=== PATIENT | female | born 1975 | race Caucasian/White ===

== ENCOUNTER 2022-01-22 08:11 | Outpatient (CLI) | payer OTHER, SELFPAY ==
--- NOTE | ~2022-01-22 | US_ITS ---
EXAMINATION: US pelvic complete w TV DATE: 01/22/2022 10:18 INDICATION: Pelvic and suprapubic pain. Postmenopausal. Comparison:No prior studies for comparison. TECHNIQUE: Multiple transabdominal and endovaginal sonographic images of the pelvis performed. FINDINGS: The uterus measures 5.3 x 4.2 x 2.7 cm. There is a small uterine fibroid measuring 8 x 6 x 4 mm. The endometrial complex measures 2.4 mm. The ovaries are not visualized, likely atrophic. There is no free fluid in the pelvis. There are no abnormal masses seen on either side. IMPRESSION: 1. Unremarkable pelvic ultrasound. Reviewed, dictated and finalized at location A.
--- NOTE | ~2022-01-22 | MMUS_ITS ---
EXAMINATION: MM diagnostic alex BI w lit, US breast BI limited HISTORY: Left breast pain TECHNIQUE: Craniocaudal, mediolateral, and mediolateral oblique 3-D tomosynthesis images of the porfirio ts were performed and synthetic 2-D images were generated. CAD analysis was submitted and interpreted . High resolution limited left breast ultrasound was performed. COMPARISON: No prior mammogram is currently available comparison. BREAST PARENCHYMAL COMPOSITION: There are scattered areas of fibroglandular density. FINDINGS: MAMMOGRAPHIC FINDINGS: No suspicious mass, calcification, or architectural distortion are identified. There is focal asymmet ry in the middle third of the upper outer quadrant left breast. ULTRASOUND: Multiple similar appearing masses are seen in the upper outer quadrants of both breasts, consistent w ith benign findings. No suspicious cystic or solid mass is identified. No definite sonographic correl ate is identified for the patient's reported breast pain. IMPRESSION: 1. No specific mammographic or sonographic correlate is identified for the patient's reported left br east pain. Further evaluation at this time should be based on clinical assessment. Continued follow-u p physical examination is recommended. 2. Recommend routine screening mammography in one year. BI-RADS Category 2: Benign finding(s). Reviewed, dictated and finalized at location A. IMPRESSION: 1. No specific mammographic or sonographic correlate is identified for the gauri ent's reported left breast pain. Further evaluation at this time should be base d on clinical assessment. Continued follow-up physical examination is recommend ed. 2. Recommend routine screening mammography in one year. BI-RADS Category 2: Benign finding(s).
== END 2022-01-22 08:12 | disposition home or self-care (01) ==
LOC: CHSIMG 08:13
PROVIDERS: PCP Nurse Practitioner Family; Visit Provider Nurse Practitioner Family
DX: R10.30 Lower abdominal pain, unspecified (principal); N64.4 Mastodynia
CPT/HCPCS: 76642; 76830; 76856; 77062; 77066; G0279

== ENCOUNTER 2022-03-30 13:53 | Outpatient (CLI) | payer OTHER, SELFPAY ==
[2022-03-30 14:04] LABS: Basophils Absolute Auto 0.07 K/mm3 (0.00-0.10); Basophils Percent Auto 0.6 % (0.0-1.0); Eosinophils Absolute Auto 0.27 K/mm3 (0.02-0.50); Eosinophils Percent Auto 2.4 % (1.0-6.0); Hematocrit 45.9 % (35.0-49.0); Hemoglobin 14.7 g/dL (12.0-15.0); Immature Granulocyte Absolute 0.03 K/mm3 (0.00-0.00); Immature Granulocyte Percent A 0.3 % (0.0-0.0); Mean Corpuscular Hemoglobin 28.9 pg (27.0-31.0); Mean Corpuscular Volume 90.2 fL (78.0-102.0); Monocytes Absolute Auto 1.01 K/mm3 (0.10-0.90); Monocytes Percent Auto 8.9 % (2.0-11.0); Neutrophils Absolute Auto 5.9 K/mm3 (1.7-7.2); Neutrophils Percent Auto 51.8 % (50.0-70.0); Platelet Count Result 273 K/mm3 (150-420); Red Blood Count 5.09 M/mm3 (4.20-5.40); Red Cell Distribution Width 13.2 % (11.6-14.4); White Blood Count 11.4 K/mm3 (4.8-10.8)
[2022-03-30 14:08] LABS: Add Urine Microscopic? NO; Appearance Urine Clear (Clear); Bilirubin Urine Negative (Negative); Blood Urine Negative (Negative); Color Urine Light Yellow (Yellow); Glucose Urine UA Negative (Negative); Ketones Urine Negative (Negative); Leukocyte Esterase Ur Negative LEU/UL (Negative); Nitrate Urine Negative (Negative); Protein Urine Negative (Negative); Urobilinogen Urine 0.2 mg/dL (0.2-1.0)
--- NOTE | 2022-03-30 14:26 | ECG_ITS ---
Measurements Intervals [place] Rate: 94 P: 75 NC: 131 QRS: 19 QRSD: 79 T: 54 QT: 360 QTc: 451 Interpretive Statements SINUS RHYTHM LOW QRS VOLTAGE IN PRECORDIAL LEADS BORDERLINE ST-T WAVE ABNORMALITY- DIFFUSE LEADS BASELINE ARTIFACT- II, III, AVR, AVF BORDERLINE ECG NO PREVIOUS ECG AVAILABLE FOR COMPARISON Electronically Signed On 03-30-2022 16:59:13 CDT by José Miguel Howell D.O.
[2022-03-30 15:02] LABS: Alanine Aminotransferase 70 U/L (14-59); Albumin Level 4.3 g/dL (3.4-5.0); Alkaline Phosphatase 91 U/L (46-116); Anion Gap 7 mmol/L (8-16); Aspartate Amino Transferase 47 U/L (15-37); Bilirubin,Total 0.3 mg/dL (0.00-1.00); Blood Urea Nitrogen 13 mg/dL (7-18); Calcium 9.6 mg/dL (8.5-10.1); Carbon Dioxide 31 mmol/L (21-32); Chloride 98 mmol/L (98-108); Estimated Glomerular Filt Rate > 60; Free T4 Free Thyroxine 0.92 ng/dL (0.76-1.46); Glucose 88 mg/dL (70-99); Iron 63 ug/dL (50-170); Magnesium 1.9 mg/dL (1.8-2.4); Osmolality Calculated 281 mOsm/kg (285-295); Potassium 3.9 mmol/L (3.5-5.1); Sodium 136 mmol/L (136-145); Thyroid Stimulating Hormone 3.95 uIU/mL (0.36-3.74); Total Protein 7.8 g/dL (6.4-8.2); Vitamin B12 467 pg/mL (193-986)
[2022-04-01 17:17] LABS: Vitamin D 25 Hydroxy 15 ng/mL (30-100)
== END 2022-03-30 13:54 | disposition home or self-care (01) ==
LOC: CHSLAB 13:56
PROVIDERS: PCP Nurse Practitioner Family; Visit Provider Nurse Practitioner Family
DX: R53.83 Other fatigue (principal); I10 Essential (primary) hypertension; Z79.899 Other long term (current) drug therapy
CPT/HCPCS: 36415; 80053; 81003; 82306; 82607; 83540; 83735; 84439; 84443; 85025; 93005

== ENCOUNTER 2022-07-14 16:15 | Emergency (ER) | payer OTHER, SELFPAY ==
--- NOTE | ~2022-07-14 | CT_ITS ---
EXAMINATION: CT abdomen pelvis w con DATE: 07/14/2022 18:03 INDICATION: RUQ Umbilical abdominal pain TECHNIQUE: Computed tomography (CT) of the abdomen and pelvis was performed with 100 mL Omnipaque-350 intravenous contrast. Automated exposure control and iterative reconstruction technique were employe d. The dose-length product was 1439.55 mGy-cm. COMPARISON: None. FINDINGS: Lower thorax: Unremarkable. Incompletely visualized right middle lobe opacity, likely representing sc ar/atelectasis Liver: Enlarged. Diffusely fatty infiltrated. Biliary/Gallbladder: Gallbladder is normal. No bile duct dilation. Pancreas: Fatty infiltrated. Spleen: Normal. Adrenals:No mass. Kidneys: No mass, stone, or hydronephrosis. Mild bilateral perinephric stranding. GI tract: No small or large bowel dilation. Normal appendix. Mesentery/Peritoneum: No ascites, mass, or free air. Retroperitoneum: No mass. Pelvis: Partially distended urinary bladder with wall thickening, remaining pelvic organs are within normal limits. Soft Tissues: Soft tissues and body wall unremarkable. Bones: No acute osseous finding. IMPRESSION: Hepatomegaly and steatosis. Bladder wall thickening, which may be secondary to incomplete distention or cystitis. Reviewed, dictated and finalized at location K. A MILLING MACHINE OPERATOR
[2022-07-14 16:15] VITALS: BP 156/97; PULSE 100; RESP 16; TEMP 36.3; O2SAT 100
--- NOTE | 2022-07-14 16:27 | ED.ABDPAIN ---
HPI - Abdominal Pain General Chief Complaint: Abdominal Pain Stated Complaint: pain in belly button around to her back Time Seen by Provider: 07/14/22 16:26 Source: patient and RN notes reviewed Mode of arrival: ambulatory Limitations: no limitations History of Present Illness HPI narrative: Patient is sent over from the primary care clinic where she was there for abdominal pain. Nurse practitioner states that the patient has been having abdominal pain for 2 days and feels like something is pulling from her umbilicus down. She does have a history of a umbilical hernia that had mesh placement several years ago. She had a UA done that apparently was negative. Nurse practitioner felt that she needed to have some blood work and CT scan done. Patient has had problems with nausea, no diarrhea or constipation, no fever no chills. MD elicited complaint: abdominal pain Pertinent past history: none Onset (ago): day(s) (2) Pain Consistency: constant Location: periumbilical Severity: severe Quality: stabbing, sharp and burning Radiation: back Migration to: no migration Related Data Allergies Allergy/AdvReac Type Severity Reaction Status Date / Time egg Allergy Severe stomach Verified 07/14/22 16:26 pain, cant breathe, vomiting. peanut Allergy Severe stomach Verified 07/14/22 16:26 pains PMFSH Past Medical History Medical History Hepatic steatosis Left tibial fracture Periumbilical hernia Surgical History Surgical History H/O hernia repair H/O left knee surgery H/O oral surgery H/O right knee surgery ligament tears History of tonsillectomy Social History Social History (Updated 07/14/22 @ 15:23 by Rosey Penny MA) Smoking packs per day: 0.25 Smoking cigarettes per day: 5.0 Years smoked: 30 Smoking pack-years: 7.50 Smoking status: Current every day smoker Alcohol intake: current Alcohol use details: social Substance use: never Substance use type: does not use Lack of Transportation: No Lack of Food: Never True Current Housing: I Have Housing Concerned About Future Housing: No Difficulty Paying Gas/Electric Bills: No Difficulty Paying for Meds: No Currently Unemployed: No Education: Grade School Difficulty w/ Childcare or Family Care: No Course Vital Signs Vital signs: Vital Signs Temperature 36.3 C L 07/14/22 16:15 Pulse Rate 100 07/14/22 16:15 Respiratory Rate 16 07/14/22 16:15 Blood Pressure 156/97 H 07/14/22 16:15 Pulse Oximetry 100 07/14/22 16:15 Oxygen Delivery Room Air 07/14/22 16:15 Temperature 36.3 C L 07/14/22 16:15 Pulse Rate 86 07/14/22 18:16 Respiratory Rate 14 07/14/22 18:16 Blood Pressure 103/62 07/14/22 18:16 Pulse Oximetry 98 07/14/22 18:16 Oxygen Delivery Room Air 07/14/22 18:16 MDM - Abdominal Pain MDM Narrative Medical decision making narrative: I considered abdominal pain, bowel obstruction, bowel perforation, urinary tract infection, adhesions from previous surgery, diverticulitis, gastroenteritis, acute appendicitis. On CT patient found to have thickening of the bladder wall and mild perinephric stranding. She may be having a urinary tract infection even know her urine was normal at the clinic. I am going to treat her for a UTI as her follow-up with her surgeon for possible adhesion which would not be seen on CT scan. Lab Data Attestation: I reviewed the patient's lab results. 07/14/22 17:03 07/14/22 17:03 Labs: Lab Results 07/14/22 07/14/22 07/14/22 Range/Units 17:03 17:03 17:03 WBC 10.6 (4.8-10.8) K/mm3 RBC 4.92 (4.20-5.40) M/mm3 Hgb 14.5 (12.0-15.0) g/dL Hct 44.3 (35.0-49.0) % MCV 90.0 (78.0-102.0) fL MCH 29.5 (27.0-31.0) pg MCHC 32.7 (32.0-36.0) g/dL RDW 12.9 (11.6-14.4) % Plt Count 229
[2022-07-14] MEDS: ONDANSETRON INJ 4 MG/2 ML VIAL IV PUSH (16:45)
[2022-07-14] MEDS: HYDROmorphone HCL INJ (*CRX) 2 MG/ML VIAL 1 MG IV PUSH (16:57)
--- NOTE | 2022-07-14 17:02 | PC.NURSE ---
POST ERP EXAM, PT REPORTS EMESIS DUE TO PAIN. MEDICATION WAS ADMINISTERED, PT REPORTS NAUSEA IS MUCH BETTER, PAIN IS GETTING BETTER. WILL CONTINUE TO MONITOR.
[2022-07-14 17:07] LABS: Basophils Absolute Auto 0.05 K/mm3 (0.00-0.10); Basophils Percent Auto 0.5 % (0.0-1.0); Eosinophils Absolute Auto 0.22 K/mm3 (0.02-0.50); Eosinophils Percent Auto 2.1 % (1.0-6.0); Hematocrit 44.3 % (35.0-49.0); Hemoglobin 14.5 g/dL (12.0-15.0); Immature Granulocyte Absolute 0.03 K/mm3 (0.00-0.00); Immature Granulocyte Percent A 0.3 % (0.0-0.0); Lymphocytes Absolute Auto 4.68 K/mm3 (1.10-4.50); Lymphocytes Percent Auto 44.3 % (18.0-42.0); Mean Corpuscular HGB Conc 32.7 g/dL (32.0-36.0); Mean Corpuscular Hemoglobin 29.5 pg (27.0-31.0); Mean Platelet Volume 11.4 fl (9.2-11.8); Monocytes Absolute Auto 0.76 K/mm3 (0.10-0.90); Monocytes Percent Auto 7.2 % (2.0-11.0); Neutrophils Absolute Auto 4.8 K/mm3 (1.7-7.2); Neutrophils Percent Auto 45.6 % (50.0-70.0); Platelet Count Result 229 K/mm3 (150-420); Red Blood Count 4.92 M/mm3 (4.20-5.40); Red Cell Distribution Width 12.9 % (11.6-14.4); White Blood Count 10.6 K/mm3 (4.8-10.8)
[2022-07-14 17:25] LABS: Alanine Aminotransferase 52 U/L (14-59); Albumin Level 3.9 g/dL (3.4-5.0); Alkaline Phosphatase 82 U/L (46-116); Anion Gap 7 mmol/L (8-16); Aspartate Amino Transferase 35 U/L (15-37); Bilirubin,Total 0.3 mg/dL (0.00-1.00); Blood Urea Nitrogen 11 mg/dL (7-18); Calcium 9.2 mg/dL (8.5-10.1); Carbon Dioxide 30 mmol/L (21-32); Chloride 99 mmol/L (98-108); Estimated CRCL calculation 84 ml/min; Estimated Glomerular Filt Rate > 60; Glucose 99 mg/dL (70-99); Lipase 24 U/L (16-77); Osmolality Calculated 281 mOsm/kg (285-295); Potassium 3.5 mmol/L (3.5-5.1); Sodium 136 mmol/L (136-145); Total Protein 8.2 g/dL (6.4-8.2)
[2022-07-14 17:26] VITALS: BP 125/80; PULSE 96; RESP 16; O2SAT 94
--- NOTE | 2022-07-14 17:26 | PC.NURSE ---
PT REPORTS PAIN AND NAUSEA HAVE IMPROVED. PT IS AWAITING RESULTS AT THIS TIME. VSS PER MONITOR. WILL CONTINUE TO MONITOR.
[2022-07-14 17:28] LABS: Lactic Acid Reflex 1.4 mmol/L (0.4-2.0)
[2022-07-14 17:36] LABS: CRP 1.6 mg/dL (0.0-0.9)
--- NOTE | 2022-07-14 17:57 | PC.NURSE ---
PT IS IN CT AT THIS TIME
[2022-07-14 18:16] VITALS: BP 103/62; PULSE 86; RESP 14; O2SAT 98
--- NOTE | 2022-07-14 18:16 | PC.NURSE ---
PT RETURNS FROM CT, AWAITING RESULTS AT THIS TIME. VSS, NAD NOTED AT THIS TIME. WILL CONTINUE TO MONITOR.
[2022-07-14 19:45] VITALS: BP 124/80; PULSE 92; RESP 16; TEMP 36.9; O2SAT 100
== END 2022-07-14 20:00 | disposition home or self-care (01) ==
PROVIDERS: Emergency Provider Emergency Medicine; PCP Nurse Practitioner Family
DX: R10.33 Periumbilical pain (principal); N30.00 Acute cystitis without hematuria; K76.0 Fatty (change of) liver, not elsewhere classified; F17.210 Nicotine dependence, cigarettes, uncomplicated
CPT/HCPCS: 36415; 74177; 80053; 83605; 83690; 85025; 86140; 96365; 96375; 99284; J0696; J1170; J2405; Q9967

== ENCOUNTER 2022-07-20 11:06 | Outpatient (CLI) | payer OTHER, SELFPAY ==
[2022-07-20 11:29] LABS: Add Urine Microscopic? YES; Appearance Urine Clear (Clear); Bilirubin Urine Negative (Negative); Blood Urine 3+ (Negative); Color Urine Light Yellow (Yellow); Glucose Urine UA Negative (Negative); Ketones Urine Negative (Negative); Leukocyte Esterase Ur 2+ LEU/UL (Negative); Nitrate Urine Negative (Negative); Protein Urine 1+ (Negative); Specific Grav Ur 1.025 (1.010-1.020); Urobilinogen Urine 0.2 mg/dL (0.2-1.0)
[2022-07-20 11:37] LABS: Squamous Epithelial Cell Urine Few /hpf (Few); WBC Urine >75 /hpf (0-3)
[2022-07-20 11:38] LABS: Bacteria Urine Trace /hpf
== END 2022-07-20 11:07 | disposition home or self-care (01) ==
LOC: CHSLAB 11:08
PROVIDERS: PCP Nurse Practitioner Family; Visit Provider Nurse Practitioner Family
DX: R10.30 Lower abdominal pain, unspecified (principal)
CPT/HCPCS: 81001; 87077; 87086; 87088; 87186

== ENCOUNTER 2022-07-23 10:19 | Outpatient (CLI) | payer OTHER, SELFPAY ==
--- NOTE | ~2022-07-23 | US_ITS ---
US abdomen complete DATE: 07/23/2022 11:02 INDICATION: Lower abdominal pain TECHNIQUE: Real-time imaging and Doppler analysis of the abdominal structures COMPARISON: 07/31/2022 CT abdomen pelvis FINDINGS: Hepatic steatosis. Normal hepatopedal portal venous flow direction. No hepatic or pancreati c space-occupying mass lesion is evident. The common bile duct measures 5 mm, normal. There are small filling defects in the dependent aspect of the gallbladder lumen, with associated sha dowing, consistent with cholelithiasis. No gallbladder wall thickening or pericholecystic fluid colle ction. Negative sonographic Mireles's sign. No renal mass lesion or hydronephrosis. The inferior vena cava and abdominal aorta largely obscured by bowel gas. Abdominal aorta is of robb l caliber on 07/14/2022 CT abdomen pelvis examination. IMPRESSION: Cholelithiasis Hepatic steatosis Reviewed, dictated and finalized at Location A. Reviewed, dictated and finalized at location A. FACTORY WORKER
== END 2022-07-23 10:20 | disposition home or self-care (01) ==
LOC: CHSIMG 10:21
PROVIDERS: PCP Nurse Practitioner Family; Visit Provider Nurse Practitioner Family
DX: R10.30 Lower abdominal pain, unspecified (principal); K80.50 Calculus of bile duct without cholangitis or cholecystitis without obstruction; K76.0 Fatty (change of) liver, not elsewhere classified
CPT/HCPCS: 76700

== ENCOUNTER 2022-07-31 09:11 | Outpatient (CLI) | payer OTHER, SELFPAY ==
--- NOTE | ~2022-07-31 | CT_ITS ---
CT Abdomen and Pelvis with contrast. History: Abdominal pain. Spiral CT of the abdomen and pelvis was performed after the administration of intravenous contrast. 1 00 cc of Omnipaque 350 was administered intravenously without complication. Dose reduction technique was used on this scan by utilizing automated exposure control and iterative reconstruction technique. The dose-length product (DLP) was 1469.11 mGy-cm. COMPARISON: 07/14/2022 Findings: Scans through the lung bases demonstrate mild atelectatic change. Diffuse fatty infiltration of liver is noted. The spleen, pancreas, gallbladder, adrenals and kidneys are within normal limits. No evidence of aortic aneurysm. No lymphadenopathy is seen. There is no evidence of bowel obstruction. There is no evidence to suggest acute appendicitis or dive rticulitis. Images through the pelvis were performed. Urinary bladder unremarkable. No adnexal mass seen. No asci [place]. No ascites is seen. Impression: No acute abnormality. Diffuse fatty infiltration of the liver. Reviewed, dictated and finalized at location . TECHNICIAN Impression: No acute abnormality. Diffuse fatty infiltration of the liver.
== END 2022-07-31 09:12 | disposition home or self-care (01) ==
LOC: CHSIMG 09:12
PROVIDERS: PCP Nurse Practitioner Family; Visit Provider Nurse Practitioner Family
DX: R10.9 Unspecified abdominal pain (principal); R10.30 Lower abdominal pain, unspecified; K80.20 Calculus of gallbladder without cholecystitis without obstruction; K76.0 Fatty (change of) liver, not elsewhere classified
CPT/HCPCS: 74177; Q9967

== ENCOUNTER 2022-08-07 13:29 | Outpatient (CLI) | payer OTHER, SELFPAY ==
--- NOTE | 2022-08-07 13:35 | ECG_ITS ---
Measurements Intervals [place] Rate: 93 P: 77 NH: 144 QRS: 69 QRSD: 81 T: 74 QT: 343 QTc: 428 Interpretive Statements SINUS RHYTHM DELAYED PRECORDIAL R/S TRANSITION LOW QRS VOLTAGE IN PRECORDIAL LEADS BORDERLINE ST-T WAVE ABNORMALITY- ANTEROLAT/HIGH LAT LEADS BASELINE ARTIFACT- II, III, AVF BORDERLINE ECG COMPARED TO ECG 03/30/2022 14:26:18 NO SIGNIFICANT CHANGES Electronically Signed On 08-07-2022 13:46:25 UTILITY MAINTENANCE WORKER by José Miguel Howell D.O.
== END 2022-08-07 13:30 | disposition home or self-care (01) ==
LOC: CHSCARD 13:31
PROVIDERS: PCP Nurse Practitioner Family; Visit Provider Nurse Practitioner Family
DX: R11.2 Nausea with vomiting, unspecified (principal); R94.31 Abnormal electrocardiogram [ECG] [EKG]
CPT/HCPCS: 93005

== ENCOUNTER 2022-11-26 07:48 | Outpatient (CLI) | payer OTHER, SELFPAY ==
--- NOTE | ~2022-11-26 | MR_ITS ---
MRI of the lumbar spine Clinical History: Back pain Technique: Axial T2-weighted images, and sagittal T1-weighted, T2-weighted, and T2 fat-sat images wer e acquired. Findings: There is no fracture or subluxation of the lumbar spine. Vertebral bodies maintain normal h eight and alignment. No bone marrow signal abnormality seen. Intervertebral discs maintain normal signal and position throughout the lumbar spine. No significant disc bulge or herniation seen. There is no spinal canal stenosis or neural foraminal narrowing in the lumbar spine. There are mild facet joint degenerative changes at L1-L2, L2-L3, L3-L4. There is advanced facet arthr opathy bilaterally at L4-L5 and L5-S1. Paravertebral soft tissues are unremarkable. Impression: Facet joint arthropathy and lumbar spine, as detailed above. Reviewed, dictated and finalized at location M. Impression: Facet joint arthropathy and lumbar spine, as detailed above.
== END 2022-11-26 07:49 | disposition home or self-care (01) ==
LOC: CHSIMG 07:49
PROVIDERS: PCP Nurse Practitioner Family; Visit Provider Nurse Practitioner Family
DX: M47.817 Spondylosis without myelopathy or radiculopathy, lumbosacral region (principal); G95.9 Disease of spinal cord, unspecified; M12.88 Other specific arthropathies, not elsewhere classified, other specified site
CPT/HCPCS: 72148

== ENCOUNTER 2023-01-01 09:53 | Outpatient (CLI) | payer OTHER, SELFPAY ==
--- NOTE | ~2023-01-01 | CT_ITS ---
EXAMINATION: CT abd pelvis lumbar wo con DATE: 01/01/2023 12:07 INDICATION: Urinary tract infection presenting with 10 days of left flank pain and low back pain TECHNIQUE: Computed tomography (CT) of the abdomen, pelvis and lumbar spine was performed without int ravenous contrast. Automated exposure control and iterative reconstruction technique were employed. T he dose-length product was 1390.97 mGy-cm. COMPARISON: CT abdomen pelvis dated 07/31/2022 and lumbar spine MR dated 11/26/2022 FINDINGS: Abdomen and pelvis: Lung bases are clear. Heart size is normal. No pericardial or pleural effusion. Prominent diffuse hep atic steatosis with focal sparing along the gallbladder fossa. Gallbladder surgically absent. Spleen, pancreas, bilateral adrenal glands and kidneys are normal. No urolithiasis. Bowels including the shannan endix are normal. Anteverted uterus and bilateral adnexa are unremarkable. Tiny focus of gas within t he decompressed bladder. No free intraperitoneal gas or fluid. No pathologically enlarged abdominal o r pelvic lymphadenopathy. Mild bilateral hip osteoarthritis, left greater than right. Lumbar spine: Alignment is normal. Vertebral body and disc heights are normal. Disc heights are robb l. Minimal amount of calcification along a chronic mild disc protrusion at L1-L2. No significant cent ral canal stenosis. There is multilevel bilateral lumbar facet osteoarthritis, severe bilaterally at L4-L5 and L5-S1 contributes to mild bilateral neural foraminal stenosis at L4-L5, minimal at L5-S1. M oderate bilateral sacroiliac osteoarthritis. IMPRESSION: 1. No acute intra-abdominal/pelvic process. 2. Mild lumbar spondylosis. 3. Moderate bilateral sacral iliac osteoarthritis. Reviewed, dictated and finalized at location A.
[2023-01-01 10:10] LABS: Basophils Absolute Auto 0.05 K/mm3 (0.00-0.10); Basophils Percent Auto 0.4 % (0.0-1.0); Eosinophils Absolute Auto 0.19 K/mm3 (0.02-0.50); Eosinophils Percent Auto 1.5 % (1.0-6.0); Hematocrit 44.5 % (35.0-49.0); Immature Granulocyte Absolute 0.04 K/mm3 (0.00-0.00); Immature Granulocyte Percent A 0.3 % (0.0-0.0); Lymphocytes Absolute Auto 4.38 K/mm3 (1.10-4.50); Lymphocytes Percent Auto 35.2 % (18.0-42.0); Mean Corpuscular HGB Conc 33.7 g/dL (32.0-36.0); Mean Corpuscular Hemoglobin 30.7 pg (27.0-31.0); Monocytes Absolute Auto 0.77 K/mm3 (0.10-0.90); Monocytes Percent Auto 6.2 % (2.0-11.0); Neutrophils Percent Auto 56.4 % (50.0-70.0); Platelet Count Result 241 K/mm3 (150-420); Red Blood Count 4.89 M/mm3 (4.20-5.40); Red Cell Distribution Width 13.1 % (11.6-14.4); White Blood Count 12.5 K/mm3 (4.8-10.8)
[2023-01-01 10:49] LABS: Alanine Aminotransferase 65 U/L (14-59); Alkaline Phosphatase 77 U/L (46-116); Anion Gap 9 mmol/L (8-16); Aspartate Amino Transferase 42 U/L (15-37); Bilirubin,Total 0.5 mg/dL (0.00-1.00); Blood Urea Nitrogen 16 mg/dL (7-18); Calcium 9.6 mg/dL (8.5-10.1); Carbon Dioxide 29 mmol/L (21-32); Chloride 99 mmol/L (98-108); Estimated Glomerular Filt Rate > 60; Glucose 100 mg/dL (70-99); Osmolality Calculated 285 mOsm/kg (285-295); Potassium 4.1 mmol/L (3.5-5.1); Sodium 137 mmol/L (136-145); Total Protein 7.8 g/dL (6.4-8.2); Uric Acid 6.3 mg/dL (2.6-6.0)
[2023-01-01 13:08] LABS: Appearance Urine Clear (Clear); Bilirubin Urine 1+ (Negative); Blood Urine 1+ (Negative); Glucose Urine UA Trace (Negative); Ketones Urine Trace (Negative); Leukocyte Esterase Ur 2+ LEU/UL (Negative); Nitrate Urine Positive (Negative); Protein Urine 2+ (Negative)
[2023-01-01 13:16] LABS: Color Urine Dark Orange (Yellow)
[2023-01-01 13:17] LABS: Add Urine Microscopic? YES; Bacteria Urine 1+ /hpf; RBC Urine 0-2 /hpf (0-2); Squamous Epithelial Cell Urine Few /hpf (Few); WBC Urine 51-75 /hpf (0-3)
== END 2023-01-01 09:54 | disposition home or self-care (01) ==
PROVIDERS: PCP Nurse Practitioner Family; Visit Provider Nurse Practitioner Family
DX: N39.0 Urinary tract infection, site not specified (principal); R10.9 Unspecified abdominal pain; R11.2 Nausea with vomiting, unspecified; R82.90 Unspecified abnormal findings in urine; M43.06 Spondylolysis, lumbar region; M47.898 Other spondylosis, sacral and sacrococcygeal region
CPT/HCPCS: 36415; 72131; 74176; 80053; 81001; 84550; 85025; 87077; 87086; 87088; 87186

== ENCOUNTER 2023-05-07 09:05 | Outpatient (NON) | payer OTHER, SELFPAY | END 2023-05-07 09:06 | disposition home or self-care (01) | LOC: CHSLAB 09:06 | PROVIDERS: Visit Provider Family Medicine | DX: R32 Unspecified urinary incontinence (principal) | CPT/HCPCS: 87086; 87088 ==

== ENCOUNTER 2023-08-03 11:54 | Outpatient (CLI) | payer OTHER, SELFPAY ==
[2023-08-03 12:08] LABS: Basophils Absolute Auto 0.04 K/mm3 (0.00-0.10); Basophils Percent Auto 0.3 % (0.0-1.0); Eosinophils Absolute Auto 0.17 K/mm3 (0.02-0.50); Eosinophils Percent Auto 1.5 % (1.0-6.0); Hematocrit 44.2 % (35.0-49.0); Hemoglobin 14.6 g/dL (12.0-15.0); Immature Granulocyte Absolute 0.02 K/mm3 (0.00-0.00); Immature Granulocyte Percent A 0.2 % (0.0-0.0); Lymphocytes Absolute Auto 4.96 K/mm3 (1.10-4.50); Lymphocytes Percent Auto 42.4 % (18.0-42.0); Mean Corpuscular Hemoglobin 29.3 pg (27.0-31.0); Mean Corpuscular Volume 88.8 fL (78.0-102.0); Monocytes Absolute Auto 0.86 K/mm3 (0.10-0.90); Monocytes Percent Auto 7.4 % (2.0-11.0); Neutrophils Absolute Auto 5.6 K/mm3 (1.7-7.2); Neutrophils Percent Auto 48.2 % (50.0-70.0); Platelet Count Result 232 K/mm3 (150-420); Red Blood Count 4.98 M/mm3 (4.20-5.40); Red Cell Distribution Width 13.1 % (11.6-14.4); White Blood Count 11.7 K/mm3 (4.8-10.8)
[2023-08-03 12:22] LABS: INR 0.9; Partial Thromboplastin Time 28.5 SEC (23.90-30.70); Prothrombin Time 10.3 Seconds (9.50-12.10)
== END 2023-08-03 11:55 | disposition home or self-care (01) ==
LOC: CHSLAB 11:56
PROVIDERS: PCP Nurse Practitioner Family; Visit Provider Nurse Practitioner Family
DX: R23.3 Spontaneous ecchymoses (principal)
CPT/HCPCS: 36415; 85025; 85610; 85730

== ENCOUNTER 2023-08-19 08:10 | Outpatient (CLI) | payer OTHER, SELFPAY ==
[2023-08-19 09:16] LABS: Alanine Aminotransferase 41 U/L (14-59); Albumin Level 3.7 g/dL (3.4-5.0); Alkaline Phosphatase 76 U/L (46-116); Anion Gap 8 mmol/L (8-16); Aspartate Amino Transferase 24 U/L (15-37); Bilirubin,Total 0.3 mg/dL (0.00-1.00); Blood Urea Nitrogen 17 mg/dL (7-18); Calcium 9.2 mg/dL (8.5-10.1); Carbon Dioxide 32 mmol/L (21-32); Chloride 99 mmol/L (98-108); Cholesterol 257 mg/dL (0-200); Estimated Glomerular Filt Rate > 60; Glucose 97 mg/dL (70-99); HDL Direct 52 mg/dL (40-60); LDL Cholesterol Calculated 177 mg/dL (<130); Osmolality Calculated 289 mOsm/kg (285-295); Potassium 4.7 mmol/L (3.5-5.1); Sodium 139 mmol/L (136-145); Thyroid Stimulating Hormone 4.45 uIU/mL (0.36-3.74); Total Protein 7.4 g/dL (6.4-8.2); Triglycerides 139 mg/dL (0-150)
== END 2023-08-19 08:11 | disposition home or self-care (01) ==
PROVIDERS: PCP Nurse Practitioner Family
DX: R53.83 Other fatigue (principal); Z13.220 Encounter for screening for lipoid disorders
CPT/HCPCS: 36415; 80053; 80061; 84443

== ENCOUNTER 2023-08-24 12:03 | Outpatient (CLI) | payer OTHER, SELFPAY ==
[2023-08-24 13:24] LABS: Free T3 2.89 pg/mL (2.18-3.98); Free T4 Free Thyroxine 1.19 ng/dL (0.76-1.46)
[2023-08-27 07:39] LABS: Thyroid Peroxidase Antibodies 1 IU/mL (<9)
== END 2023-08-24 12:04 | disposition home or self-care (01) ==
LOC: CHSLAB 12:05
PROVIDERS: PCP Nurse Practitioner Family; Visit Provider Nurse Practitioner Family
DX: R79.89 Other specified abnormal findings of blood chemistry (principal)
CPT/HCPCS: 36415; 84439; 84443; 84481; 86376

== ENCOUNTER 2023-09-08 15:06 | Emergency (ER) | payer OTHER, SELFPAY ==
[2023-09-08] VITALS (17 sets, daily range): BP systolic 116–149; BP diastolic 66–80; PULSE 75–106; RESP 16–18; TEMP 36–36.7; O2SAT 92–100
--- NOTE | ~2023-09-08 | CT_ITS ---
EXAMINATION: CT abdomen pelvis wo con DATE: 09/08/2023 17:52 INDICATION: Right flank pain TECHNIQUE: Computed tomography (CT) of the abdomen and pelvis was performed without intravenous contr ast. The dose-length product (DLP) was 1516.65 mGy-cm. Automated exposure control and iterative recon struction technique were employed. COMPARISON: 01/01/2023 FINDINGS: The lung bases are clear. The heart size is normal. The liver is diffusely low in attenuati on when compared with the spleen, consistent with hepatic steatosis. Changes of cholecystectomy are n oted. The spleen, pancreas, and adrenal glands are normal. The left kidney is unremarkable. There is mild demonstrating surrounding the right kidney. There is also right periureteral fat stranding. No h ydronephrosis or hydroureter. No pathologically enlarged abdominal or pelvic lymph nodes are identifi ed. No free intraperitoneal gas or evidence of bowel obstruction. The appendix is normal. IMPRESSION: 1. Right perinephric fat stranding and edematous stranding surrounding the right ureter which could r eflect urinary tract infection and possible pyelonephritis. Reviewed, dictated and finalized at location F. LANCE ART DIRECTOR IMPRESSION: 1. Right perinephric fat stranding and edematous stranding surrounding the righ t ureter which could reflect urinary tract infection and possible pyelonephriti s.
--- NOTE | 2023-09-08 15:17 | ED.ABDPAIN ---
HPI - Abdominal Pain General Chief Complaint: Abdominal Pain Stated Complaint: ABD PAIN Time Seen by Provider: 09/08/23 15:12 Source: patient Mode of arrival: ambulatory Limitations: no limitations History of Present Illness HPI narrative: 48-year-old female smoker history of obesity, dyslipidemia CVA with multiple strokes, peripheral vascular disease, chronic low back pain/lumbar myelopathy, hepatic steatosis presents to the ER with -- right-sided abdominal pain for the past 1 week. -- Fever with chills for the past 3 days. -- No dysuria or hematuria -- patient had nausea without any vomiting or diarrhea. MD elicited complaint: abdominal pain and flank pain Pertinent past history: past UTI Onset (ago): day(s) ( Seven days) Pain Consistency: constant Location: R flank Severity: severe Quality: aching Radiation: none Migration to: no migration Exacerbating factors: nothing Relieving factors: nothing Associated symptoms: nausea, fever and chills Related Data Patient : No Home Medications Medication Instructions Recorded Confirmed acetaminophen 300 mg-codeine 30 mg 1 tablet PO Q8H PRN pain 05/12/23 05/12/23 tablet aspirin 81 mg tablet 81 mg PO DAILY 08/24/23 pregabalin 75 mg capsule 75 mg PO DAILY PRN 08/24/23 rosuvastatin 10 mg tablet 10 mg PO DAILY 08/24/23 08/24/23 Allergies Allergy/AdvReac Type Severity Reaction Status Date / Time egg Allergy Severe stomach Verified 09/08/23 15:15 pain, cant breathe, vomiting. peanut Allergy Severe stomach Verified 09/08/23 15:15 pains Review of Systems Review of Systems: All systems reviewed & are unremarkable except as noted in HPI and below Constitutional: Constitutional: Reports as per HPI, Reports no additional constitutional complaints, Reports fever(s) and Reports weakness Eyes: Eyes: Reports as per HPI and Reports no additional eye complaints ENT: Reports system reviewed and no additional complaints, except as documented and Reports as per HPI Cardiovascular: Cardiovascular: Reports as per HPI and Reports no additional cardiovascular complaints Respiratory: Respiratory: Reports as per HPI and Reports no additional respiratory complaints Gastrointestinal: Gastrointestinal: Reports as per HPI, Reports no additional gastrointestinal complaints, Reports abdominal pain and Reports nausea Genitourinary: Genitourinary: Reports no additional female genitourinary complaints and Reports as per HPI Musculoskeletal: Musculoskeletal: Reports no additional musculoskeletal complaints and Reports as per HPI Integumentary/Breasts: Skin/Breast: Reports system reviewed and no additional complaints, except as docu and Reports as per HPI Neurologic: Reports system reviewed and no additional complaints, except as documented and Reports as per HPI Psychiatric: Psychiatric: Reports no additional psychiatric complaints and Reports as per HPI Endocrine: Endocrine: Reports no additional endocrine complaints and Reports as per HPI Hematologic/Lymphatic: Hematologic/Lymphatic: Reports no additional hematologic/lymphatic complaints and Reports as per HPI Allergic/Immunologic: Allergic/Immunologic: Reports no additional allergic/immunologic complaints and Reports as per HPI [facility] Past Medical History Medical History CVA (cerebral vascular accident) 2 in the past, most recent 8 years back. Happens with seizure activity. Affected R eye vision & memory Hepatic steatosis Left tibial fracture Periumbilical hernia Surgical History Surgical History H/O hernia repair H/O left knee surgery H/O oral surgery H/O right knee surgery ligament tears History of tonsillectomy Family History Family History Mother Thyroid disease H/O thyroidectomy Non Hodgkin's lymphoma Kidney dis
[2023-09-08] MEDS: LACTATED RINGERS 1,000 ML 999 ML IV CONT (16:03)
[2023-09-08] MEDS: ONDANSETRON INJ 4 MG/2 ML VIAL IV PUSH (16:04)
[2023-09-08] MEDS: MORPHINE SULFATE (*CRX) 2 MG/ML INJ IV PUSH (16:05)
[2023-09-08 16:10] LABS: Basophils Absolute Auto 0.04 K/mm3 (0.00-0.10); Basophils Percent Auto 0.4 % (0.0-1.0); Eosinophils Absolute Auto 0.18 K/mm3 (0.02-0.50); Eosinophils Percent Auto 1.6 % (1.0-6.0); Hematocrit 42.7 % (35.0-49.0); Hemoglobin 13.8 g/dL (12.0-15.0); Immature Granulocyte Absolute 0.04 K/mm3 (0.00-0.00); Immature Granulocyte Percent A 0.4 % (0.0-0.0); Lymphocytes Percent Auto 26.1 % (18.0-42.0); Mean Corpuscular HGB Conc 32.3 g/dL (32.0-36.0); Mean Corpuscular Hemoglobin 28.6 pg (27.0-31.0); Mean Corpuscular Volume 88.6 fL (78.0-102.0); Mean Platelet Volume 11.3 fl (9.2-11.8); Monocytes Absolute Auto 0.34 K/mm3 (0.10-0.90); Monocytes Percent Auto 3.1 % (2.0-11.0); Neutrophils Absolute Auto 7.6 K/mm3 (1.7-7.2); Neutrophils Percent Auto 68.4 % (50.0-70.0); Platelet Count Result 202 K/mm3 (150-420); Red Blood Count 4.82 M/mm3 (4.20-5.40); Red Cell Distribution Width 13.3 % (11.6-14.4); White Blood Count 11.1 K/mm3 (4.8-10.8)
[2023-09-08 16:31] LABS: Alanine Aminotransferase 26 U/L (14-59); Albumin Level 3.5 g/dL (3.4-5.0); Alkaline Phosphatase 68 U/L (46-116); Anion Gap 10 mmol/L (8-16); Aspartate Amino Transferase 15 U/L (15-37); Bilirubin,Total 0.4 mg/dL (0.00-1.00); Blood Urea Nitrogen 18 mg/dL (7-18); Carbon Dioxide 29 mmol/L (21-32); Chloride 98 mmol/L (98-108); Estimated CRCL calculation 74 ml/min; Estimated Glomerular Filt Rate 56; Glucose 103 mg/dL (70-99); Lipase 19 U/L (16-77); Osmolality Calculated 285 mOsm/kg (285-295); Potassium 4.1 mmol/L (3.5-5.1); Sodium 137 mmol/L (136-145); Total Protein 7.6 g/dL (6.4-8.2)
[2023-09-08 16:36] LABS: Lactic Acid Reflex 1.1 mmol/L (0.4-2.0)
[2023-09-08 17:43] LABS: Appearance Urine Slightly Cloudy (Clear); Bilirubin Urine Negative (Negative); Blood Urine 2+ (Negative); Color Urine Light Yellow (Yellow); Glucose Urine UA Negative (Negative); Ketones Urine Negative (Negative); Leukocyte Esterase Ur 2+ LEU/UL (Negative); Nitrate Urine Positive (Negative); Protein Urine 1+ (Negative); Specific Grav Ur 1.015 (1.010-1.020); Urobilinogen Urine 0.2 mg/dL (0.2-1.0); pH Urine 6.5 (5.0-8.0)
[2023-09-08 17:47] LABS: Add Urine Microscopic? YES; Bacteria Urine 2+ /hpf; Squamous Epithelial Cell Urine Few /hpf (Few); WBC Urine 21-30 /hpf (0-3)
[2023-09-08] MEDS: levoFLOXacin 500 MG/D5W 100 ML 500 MG/100 ML BAG 100 MG IVPB (18:24)
--- NOTE | 2023-09-10 14:30 | PC.NURSE ---
urine culture reviewed, on cipro. no change needed
== END 2023-09-08 19:40 | disposition home or self-care (01) ==
PROVIDERS: Emergency Provider Internal Medicine Critical Care Medicine; PCP Nurse Practitioner Family
DX: N39.0 Urinary tract infection, site not specified (principal); N12 Tubulo-interstitial nephritis, not specified as acute or chronic; E78.5 Hyperlipidemia, unspecified; F17.210 Nicotine dependence, cigarettes, uncomplicated; Z86.73 Personal history of transient ischemic attack (TIA), and cerebral infarction without residual deficits
CPT/HCPCS: 36415; 74176; 80053; 81001; 83605; 83690; 85025; 87077; 87086; 87088; 87186; 96361; 96365; 96375; 99284; J1956; J2270; J2405; J7120

== ENCOUNTER 2023-09-14 11:05 | Outpatient (CLI) | payer OTHER, SELFPAY ==
[2023-09-14 11:24] LABS: Appearance Urine Clear (Clear); Bilirubin Urine Negative (Negative); Blood Urine Negative (Negative); Color Urine Light Yellow (Yellow); Glucose Urine UA Negative (Negative); Ketones Urine Negative (Negative); Leukocyte Esterase Ur Negative (Negative); Nitrate Urine Negative (Negative); Protein Urine Negative (Negative); Urobilinogen Urine 0.2 mg/dL (0.2-1.0)
[2023-09-14 11:27] LABS: Add Urine Microscopic? NO
== END 2023-09-14 11:06 | disposition home or self-care (01) ==
LOC: CHSLAB 11:06
PROVIDERS: PCP Nurse Practitioner Family; Visit Provider Nurse Practitioner Family
DX: R39.9 Unspecified symptoms and signs involving the genitourinary system (principal)
CPT/HCPCS: 81003; 87086

== ENCOUNTER 2023-12-25 12:10 | Emergency (ER) | payer OTHER, SELFPAY ==
--- NOTE | ~2023-12-25 | XR_ITS ---
XR shoulder LT min 2V DATE: 12/25/2023 12:31 INDICATION: Patient fell and landed on left arm. Left shoulder pain. TECHNIQUE: 3 views COMPARISON: None FINDINGS: There are old anterolateral left sixth and seventh rib fractures. No fracture or dislocation, periosteal reaction or bone destruction or abnormal soft tissue calcifica tion of the left shoulder. IMPRESSION: No fracture or dislocation left shoulder Old left rib fractures Reviewed, dictated and finalized at location A.
--- NOTE | ~2023-12-25 | XR_ITS ---
XR clavicle LT DATE: 12/25/2023 12:32 INDICATION: Fall. Landed on left arm. Left shoulder pain for one day TECHNIQUE: AP negative AP views of left clavicle COMPARISON: None FINDINGS: No fracture or dislocation of the left clavicle. No periosteal reaction or bone destruction . Normal alignment at the acromioclavicular and glenohumeral joints. Old left rib fractures. IMPRESSION: No evidence of left clavicular fracture Reviewed, dictated and finalized at location A.
[2023-12-25 12:10] VITALS: BP 149/97; PULSE 92; RESP 20; TEMP 36.8; O2SAT 98
[2023-12-25] MEDS: KETOROLAC (*BKC) 60 MG/2 ML VIAL IM (12:40)
--- NOTE | 2023-12-25 12:43 | ED.UPPEXIN ---
HPI - Extremity Injury (Upper) General Chief Complaint: Extremity Injury, Upper Stated Complaint: fall, left shoulder injury Source: patient Mode of arrival: ambulatory Limitations: no limitations History of Present Illness HPI narrative: 48-year-old female presents with left shoulder pain after she fell last night on outstretched arm complaining of shoulder pain with movement and with palpation. Has decreased range of motion secondary to pain no other injuries her no bruising no numbness or tingling has a brisk radial pulse. complaint: injury to: left Onset (ago): day(s) Other Extremity Injury: Left: shoulder ( shoulder injury) Handedness: right Severity: moderate Severity scale (1-10): 6 Relieving factors: cold therapy and immobilization Exacerbating factors: movement of extremity Related Data Home Medications Medication Instructions Recorded Confirmed aspirin 81 mg tablet 81 mg PO DAILY 08/24/23 rosuvastatin 10 mg tablet 10 mg PO DAILY 08/24/23 08/24/23 acetaminophen 300 mg-codeine 60 mg 1 tablet PO Q8H PRN 09/14/23 09/14/23 tablet pregabalin 75 mg capsule 150 mg PO DAILY PRN 09/14/23 Allergies Allergy/AdvReac Type Severity Reaction Status Date / Time ciprofloxacin Allergy Severe Swelling Verified 09/14/23 10:39 of Lip/Tongue/Throat egg Allergy Severe stomach Verified 09/14/23 10:34 pain, cant breathe, vomiting. peanut Allergy Severe stomach Verified 09/14/23 10:34 pains Review of Systems Review of Systems: All systems reviewed & are unremarkable except as noted in HPI and below PMFSH Past Medical History Medical History CVA (cerebral vascular accident) 2 in the past, most recent 8 years back. Happens with seizure activity. Affected R eye vision & memory Hepatic steatosis Left tibial fracture Periumbilical hernia Surgical History Surgical History H/O hernia repair H/O left knee surgery H/O oral surgery H/O right knee surgery ligament tears History of tonsillectomy Family History Family History Mother Thyroid disease H/O thyroidectomy Non Hodgkin's lymphoma Kidney disease Hypertension Father Diabetes mellitus Malignant neoplasm of prostate Grandparent Thyroid disease Grandparent Thyroid disease Other Thyroid disease Other Thyroid disease Social History Social History Smoking packs per day: 0.25 Smoking cigarettes per day: 5.0 Years smoked: 30 Smoking pack-years: 7.50 Smoking status: Current every day smoker Alcohol intake: current Alcohol use details: social Substance use: never Substance use type: does not use Lack of Transportation: No Lack of Food: Never True Current Housing: I Have Housing Concerned About Future Housing: No Difficulty Paying Gas/Electric Bills: No Difficulty Paying for Meds: No Currently Unemployed: No Education: Grade School Difficulty w/ Childcare or Family Care: No Living arrangements: alone Exam Const: General: healthy appearing Nutritional Appearance: well nourished Orientation/consciousness: patient oriented x3 Limitations: no limitations Chest: Chest palpation & inspection: normal inspection of the chest Resp: Effort & Inspection: normal respiratory effort Auscultation: clear to auscultation bilaterally Cardio: Rate: regular rate Rhythm: regular rhythm GI: GI Palp: Yes Soft to palpation Auscultation: normal bowel sounds Skin: General skin exam: normal color Neuro: General: patient oriented x3, moves all extremities, no meningeal signs and no focal motor deficits Extrem: Other: Decreased range of motion left shoulder with active and passive movement and bicipital tenderness palpation. Course Cours
== END 2023-12-25 12:49 | disposition home or self-care (01) ==
PROVIDERS: Emergency Provider Emergency Medicine; PCP Nurse Practitioner Family
DX: S46.912A Strain of unspecified muscle, fascia and tendon at shoulder and upper arm level, left arm, initial encounter (principal); F17.210 Nicotine dependence, cigarettes, uncomplicated; W19.XXXA Unspecified fall, initial encounter
CPT/HCPCS: 73000; 73030; 96372; 99283; J1885

== ENCOUNTER 2024-01-31 13:29 | Outpatient (NON) | payer OTHER, SELFPAY | END 2024-01-31 13:30 | disposition home or self-care (01) | LOC: CHSLAB 13:30 | PROVIDERS: Visit Provider Nurse Practitioner Family | DX: N76.0 Acute vaginitis (principal) | CPT/HCPCS: 87070; 87075; 87205 ==

== ENCOUNTER 2024-06-29 11:10 | Outpatient (CLI) | payer OTHER, SELFPAY ==
--- NOTE | ~2024-06-29 | XR_ITS ---
EXAMINATION: XR lumbar spine 2-3V DATE: 06/29/2024 11:25 INDICATION: Lumbar spondylolisthesis. TECHNIQUE: 3 views of the lumbar spine were obtained. COMPARISON: CT abdomen and pelvis 09/08/2023 FINDINGS: Alignment is normal. Vertebral body heights are normal. Intervertebral disc heights are nor mal. There are endplate osteophytes at most levels. There is multilevel facet joint osteoarthritis, s evere in lower lumbar spine. IMPRESSION: 1. Mild lumbar spondylosis. Reviewed, dictated and finalized at location A. CTOR PROCESS IMPRESSION: 1. Mild lumbar spondylosis.
== END 2024-06-29 11:11 | disposition home or self-care (01) ==
LOC: CHSIMG 11:12
PROVIDERS: PCP Nurse Practitioner Family; Visit Provider Nurse Practitioner Family
DX: M43.06 Spondylolysis, lumbar region (principal)
CPT/HCPCS: 72100

== ENCOUNTER 2024-10-21 08:27 | Outpatient (CLI) | payer OTHER, SELFPAY ==
--- NOTE | ~2024-10-21 | MR_ITS ---
MR cervical spine wo con Ordering provider: Gemini Lange APRN History: 49 years Female with . Lt. shoulder Cervical pain post fall x1 mo . Comparison: None. Technique: MRI cervical spine without contrast. FINDINGS: CERVICAL SPINAL CORD/CRANIAL CERVICAL JUNCTION: Normal in signal and caliber. CERVICAL VERTEBRAL BODIES: Normal height and alignment. Normal marrow signal. DISK SPACES: Normal. C2-C3: No stenosis. C3-C4: No stenosis. C4-C5: No stenosis. C5-C6: No stenosis. C6-C7: No stenosis. C7-T1: No stenosis. VISUALIZED PARASPINOUS SOFT TISSUES: Normal. IMPRESSION: 1. No acute osseous abnormality. 2. No evidence of spinal canal stenosis or intervertebral foraminal narrowing. Reviewed, dictated and finalized at location A.
--- NOTE | ~2024-10-21 | MR_ITS ---
Procedure: MR shoulder LT wo con Ordering provider: Gemini Lange APRN History: . Lt. shoulder Cervical pain post fall x1 mo . Comparison: Technique: MRI left shoulder without contrast. FINDINGS: ACROMIOCLAVICULAR JOINT: Normal. No medial coracoacromial arch stenosis. ROTATOR CUFF: The supraspinatus tendon shows bright signal at the insertion which is suggestive of pa rtial tear versus tendinosis.. No subacromial subdeltoid bursitis. No evidence for subcoracoid imping ement or subscapularis tendinosis or tear. Small osteophytes in the acromion process is noted. PROXIMAL BICEPS TENDON: The proximal biceps tendon and biceps labral complex are normal. The rotator interval is normal as visualized without intraarticular contrast. INFERIOR GLENOHUMERAL LIGAMENT COMPLEX: Normal anterior and posterior bands. Normal axillary pouch. LABRUM: The superior labrum is normal. The anteroinferior labrum is normal. The posterior labrum is normal. BONES: Mild degenerative osseous cysts are seen involving the greater tuberosity of the humerus. Mar row signal is otherwise normal. GLENOHUMERAL JOINT SPACE: The glenohumeral joint space is irregular seen attenuated anteriorly sugges tive of osteoarthritic changes... Minimal joint effusion. SUPERFICIAL AND DEEP SOFT TISSUES: Otherwise, normal. No paralabral cyst. IMPRESSION: Partial tear versus tendinosis of the supraspinatus tendon. Mild osteoarthritic changes of the glenohumeral joint. Reviewed, dictated and finalized at location A.
--- OUTSIDE RECORDS SUMMARY | 2024-10-21 08:30 | XMS_ITS | Referral Summary ---
Author Organization [facility] Address [address] [place] [address] Care Team Providers Care Disability Program Navigator Name Role Phone Art Elva DNP Unavailable [phone] Gemini Lange AIR TRANSPORTATION PROVIDER Primary Care Provider [phone] Allergies Active Allergy Reactions Criticality Noted Date Comments Egg Shortness of breath,Stomach upset High 06/30/2019 Severe Abdominal Pain Nuts Shortness of breath,Stomach upset High 06/30/2019 Severe Abdominal Pain Peanut Shortness of breath High 06/16/2018 Medications lisinopril-hydr oCHLOROthiazide (ZESTORETIC) 10-12.5 mg per tabletIndicatio ns:hypertension Take 1 tablet by mouth daily Active omeprazole (PriLOSEC) 40 mg capsule Take 1 capsule (40 mg total) by mouth daily Active [id number] -Lmfolate-algal 27 mg iron-1.13 mg-581.92 mg capsule Take by mouth Active pregabalin (LYRICA) 25 mg capsule Take 1 capsule (25 mg total) by mouth 2 (two) times a day Active nitroglycerin (NITRODUR) 0.2 mg/hr Place 1 patch on the skin daily Active aspirin 81 mg enteric coated tablet Take 1 tablet (81 mg total) by mouth daily Active rosuvastatin (CRESTOR) 10 mg tablet Take 1 tablet (10 mg total) by mouth daily Active Active Problems Problem Noted Date Diagnosed Date Well woman exam 03/03/2024 Overview (03/03/2024): Lab: Pap:all normal. Last was remote Labs with pcp Tom:2021- due Colonoscopy:2015- not sure when she is supposed to return. BMD: Assessment & Plan (05/04/2024 3:25 PM CDT): Due in Feb 2025 Assessment & Plan (03/03/2024 10:39 AM CDT): Pap done. RTO 12m. I will send the results to the portal. If she has not heard in a week, to call the office. Urinary urgency 03/03/2024 Assessment & Plan (03/03/2024 4:48 PM CDT): New problem: To ua, micro and c&S Vulvar boil 03/03/2024 Overview (05/04/2024): Gone for now. Assessment & Plan (03/03/2024 4:48 PM CDT): New problem: The patient does not have any active lesions today The right vulva is significantly larger than the left She was instructed to wash twice a week with Hibiclens and we will see if this cut down her incidence of these lesions The next time she has 1 she was instructed to call the office and we will get her in same day so I can see what is going on Pelvic and perineal pain 03/03/2024 Assessment & Plan (05/04/2024 3:25 PM CDT): To ua,micro and C&S Assessment & Plan (03/03/2024 4:48 PM CDT): New problem: To pelvic ultrasound Mass of upper outer quadrant of right breast Back pain with sciatica 11/07/2020 Hypothyroidism 11/25/2019 Assessment & Plan (11/25/2019 3:08 AM CDT): Continue levothyroxine Seizure 11/09/2019 Assessment & Plan (11/09/2019 6:26 AM CDT): Patient states suspected patient had a seizure prior to her last CVA as well. Keppra was ordered. History of CVA in adulthood 11/09/2019 Assessment & Plan (11/09/2019 6:23 AM CDT): Patient had a CVA when she was 40 or 41 years old. She states she had right- sided weakness at that time but that resolved. She had no residual deficits. Expiratory wheezing 11/09/2019 Assessment & Plan (11/09/2019 6:23 AM CDT): Patient has had a cough for over 2 months and was tested for COVID earlier this month that was negative. Patient has significant smoking history. Will order p.r.n. DuoNebs. History of diabetes mellitus 11/09/2019 Assessment & Plan (11/09/2019 6:23 AM CDT): Patient states she used to be on metformin but that was discontinued. Will continue to monitor blood sugars. HTN (hypertension) 11/09/2019 Assessment & Plan (11/25/2019 3:06 AM CDT): Patient currently low normotensive. Will hold lisinopril and hydrochlorothiazide. Will continue metoprolol with hold parameters. Continue to monitor. Assessment & Plan (11/09/2019 6:24 AM CDT): Currently normotensive. Patient has p.r.n. hydralazine and labetalol ordered. Tobacco abuse 11/09/2019 Assessment & Plan (05/04/2024 3:26 PM CDT): She is cutting back. Assessment & Plan (03/03/2024 10:42 AM CDT): The patient was encouraged to stop smoking. Techniques for smoking cessation were discussed to the patient's level of interest. Assessment & Plan (11/25/2019 3:06 AM CDT): Patient still smoking a few cigarettes a day. Assessment & Plan (11/09/2019 6:26 AM CDT): Patient smokes 1 pack per day and has done so for 32 years. Will need to be counseled on the importance of smoking cessation. Resolved Problems Problem Noted Date Diagnosed Date Resolved Date Calculus of gallbladder with out cholecystitis without obstruction 08/12/2022 09/01/2022 Overview (08/12/2022): Added automatically from request for surgery [id number] Incisional hernia, without o bstruction or gangrene 03/12/2021 04/29/2021 Assessment & Plan (03/12/2021 2:31 PM CDT): Minimal symptoms however skin compromise=high risk hernia. We discussed the procedure along with the risks benfits and post operative period, she had many questions on the mesh. We discussed recurrence rates on mesh vs no mesh. Recommend sooner rather than later repair. Patient will call to schedule. Acute drug withdrawal syndro me without complication 11/25/2019 03/29/2020 Assessment & Plan (11/25/2019 3:04 AM CDT): Suspected. Patient states she was on sertraline 100 mg daily and BuSpar for many years but that was not refilled recently. She last took her medications on Wednesday. Patient's symptoms consistent with SSRI withdrawal including headache, tremors, diaphoresis, paresthesia. Her symptoms appear to resolved after IV Keppra and/or IV fluids. Patient currently only has a slight headache. Will continue to monitor. Patient states she wanted to get off sertraline and BuSpar anyways, will not continue at this time. Acute CVA (cerebrovascular accident) 11/09/2019 03/29/2020 Assessment & Plan (11/09/2019 6:24 AM CDT): Status post tPA. Patient is admitted to the ICU under the care of the tuber operator. Currently patient states her symptoms are improving. 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 No 03/03/2024 Within the last year, have y ou been humiliated or emotionally abused in other ways by your partner or ex-partner? No 03/03/2024 Physically Abused Not on file 03/03/2024 Within the last year, have y ou been raped or forced to have any kind of sexual activity by your partner or ex-partner? No 03/03/2024 AUDIT-C Answer Date Recorded Q1: How often do you have a drink containing alc ohol? Monthly or less 03/03/2024 Q2: How many drinks containi ng alcohol do you have on a typical day when you are drinking? 1 or 2 03/03/2024 Q3: How often do you have si x or more drinks on one occasion? Never 03/03/2024 PHQ-2 Answer Date Recorded PHQ-2 Total Score (If total score is 3 or more points, staff should administer the PHQ-9) 0 03/03/2024 Personal Safety Answer Date Recorded Have you ever been in or are you currently in a harmful physical or emotional relationship or is someone making you feel afraid or unsafe? Denies 03/20/2024 Comments No Sex and Gender Information Value Date Recorded Sex Assigned at Not on file Legal Sex Female 3:34 PM CDT Gender Identity Not on file Sexual Orientation Not on file Last Filed Vital Signs Vital Sign Reading Time Taken Comments Blood Pressure 116/76 05/04/2024 3:00 PM CDT Pulse 112 03/20/2024 2:14 PM CDT Temperature 36.2 C (97.1 F) 03/20/2024 2:13 PM CDT Respiratory Rate 19 03/20/2024 2:14 PM CDT Oxygen Saturation 99% 03/20/2024 2:14 PM CDT Inhaled Oxygen Concentration - - Weight 116.6 kg (257 lb) 05/18/2024 10:07 AM LITURGICAL MUSIC DIRECTOR Height 165.1 cm (5' 5 ) 05/18/2024 10:07 AM LITURGICAL MUSIC DIRECTOR Body Mass Index 42.77 05/18/2024 10:07 AM LITURGICAL MUSIC DIRECTOR Plan of Treatment Not on file Medical Devices Implanted Type Area Veterinary Nurse Device Identifier Shelf Expiration Date Model / Serial / Lot [employer] Inc/C R Bard [id number] Ventralex St Sepra Sorbaflex 1.7in [place] Open Bioresorbable - [id number] Implanted:Qty: 1 on 03/31/2021 by Bill Dyer MD at [facility] N/A: Abdomen [employer] Inc/C R Bard 07/08/2022 [id number] / / [id number] [employer] Weck Hem-O-Abhishek Ligate Nonabsorbable Cartridge Medium Large Latex Free [id number] - [id number] Implanted:Qty: 2 on 08/17/2022 by Bill Dyer MD at [facility] [employer] 06/10/2027 [id number] / / [id number] Description:6 clips used Procedures Procedure Name Priority Date/Time Associated Diagnosis Comments DIAGNOSTIC MAMMOGRAM BILATERAL W PIYUSH Schedule Routine, Read Routine (OP Routine) 04/20/2024 10:42 AM CDT Mass of upper outer quadrant of right breast HIGH RISK HPV DNA DETECTION WITH GENOTYPING Routine 03/03/2024 11:48 AM CDT Well woman exam from Last 3 Months or Most Recently Relevant to Health Maintenance Results * Diagnostic Mammogram Bilateral W Piyush (04/20/2024 10:42 AM CDT) Anatomical Region Laterality Modality Breast Bilateral Mammography 04/20/2024 12:3 1 PM CDT Impressions 04/20/2024 12:31 PM CDT Benign findings. The patient may return to screening mammography as per ACR guidelines. OVERALL FINAL ASSESSMENT: BI-RADS Category 2: Benign. Electronically signed by: Bere Bunch M.D. Narrative 04/20/2024 12:31 PM CDT EXAMINATION: BILATERAL DIGITAL DIAGNOSTIC MAMMOGRAM INCLUDING CAD AND BILATERAL DIGITAL BREAST TOMOSYNTHESIS; RIGHT BREAST SONOGRAM HISTORY: Palpable abnormality in the right COMPARISON: None TECHNIQUE: Full field digital mammographic views of BOTH breasts were performed, including computer aided detection (CAD) and BILATERAL digital breast tomosynthesis (DBT). Directed ultrasound evaluation of the RIGHT breast was performed. BREAST PARENCHYMAL COMPOSITION: There are scattered areas of fibroglandular density. MAMMOGRAM FINDINGS: No suspicious masses or suspicious calcifications are seen. There is no suspicious architectural distortion or skin thickening. There is a small, circumscribed, lucent structure in the area of palpable concern on the right. SONOGRAM FINDINGS: Sonography through the palpable area demonstrates the presence of a 7 mm cyst. This is consistent with an coiled cyst, given the mammographic appearance. us Willa Conti MD IMG MAMMO PROCEDURE S Final Result * High Risk HPV DNA Detection with Genotyping (Molecular component) (03/03/2024 11:48 AM CDT) HPV HR 16 Not Detected Not Detected [facility] Comment:Testing performed by : [facility], [address] [place]., [address] HPV HR 18 Not Detected Not Detected [facility] Comment:Testing performed by : [facility], [address] [place]., [address] HPV HR Non 16/18 Not Detected Not Detected [facility] Comment: Interpretive Data Nucleic acid amplification for detection of high-risk Human Papilloma virus (HPV) is performed by the Danay Davis 6800 HPV test. This assay specifically detects HPV-16 and HPV-18 genotypes. The following HPV genotypes are detected as high-risk HPV: HPV-31, 33, 35, ,39, 45, 51, 52, 56, 58, 59, 66, and 68. This assay has been approved by the [place] Food and Drug Administration for detection of HPV in cervical specimens collected by a physician using an endocervical brush/spatula or cervical broom and placed in the ThinPrep Pap Test PreservCyt collection containers. The performance characteristics of this test have been verified by the [facility] Infectious Disease laboratory. Correlate with separately reported cytology results, as applicable. Interpretive data last revised 23 Testing performed by: [facility], [address] [place]., [address] Endocervical 03/03/2024 11:4 8 AM CDT 03/06/2024 2:35 PM CDT Narrative [facility] - 03/06/2024 10:55 PM CDT Clinical history and diagnosis->screening Testing type->Screening Last menstrual period (date if known)->unknown Willa Conti MD LAB BODY FLUIDS AND STOOLS ORDERABLES Final Result [facility] [id number] Department [place] [address] BJ from Last 3 Months or Most Recently Relevant to Health Maintenance Insurance [facility] Advance Directives For more information, please contact: [phone] * Full Code (Latest Code Status on File) Date Activated Date Inactivated Comments 11/24/2019 5:09 PM 11/26/2019 6:12 PM * Full Code Date Activated Date Inactivated Comments 11/09/2019 3:25 AM 11/16/2019 5:09 PM Care Teams Disability Program Navigator Relationship Specialty Start Date End Date Gemini Lange, JOHAN [address] [place] [address] PCP - General Nurse Practitioner 01/17/23 Evla Cordova DNP Nurse Practitioner Neurology 11/26/19
--- OUTSIDE RECORDS SUMMARY | 2024-10-21 08:30 | XMS_ITS | Clinical Summary ---
Author Organization [facility] Address [address] [place] [address] Care Team Providers Care Hand Salter Name Role Phone Art Elva DNP Unavailable [phone] Gemini Lange HAIRPIECE STYLIST Primary Care Provider [phone] Allergies Active Allergy Reactions Criticality Noted Date [...] (40 mg total) by mouth daily Active [id number] -Lmfolate-algal 27 mg iron-1.13 mg-581.92 mg capsule [...] (08/12/2022): Added automatically from request for surgery [id number] Incisional hernia, without o bstruction or gangrene [...] the ICU under the care of the stress engineer. Currently patient states her symptoms are improving. 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) 2017 Right Mouth slig htly droops Arthritis COPD (chronic obstructive pu lmonary disease) ([facility]) Awareness under anesthesia Seizures ([facility]) patient stated s he had a seizure when she had the stroke Anxiety Heart attack ([facility]) Family History Medical History Relation Name Comments Dementia Father Diabetes Father Hypertension Father Prostate cancer Father Hypertension Mother Memory loss Mother Breast cancer Mother's Sister 1 Dianna Uterine cancer Mother's Sister 1 Dianna Uterine cancer Mother's Sister 2 Jovita Diabetes Other malissa (self) Memory loss Other malissa (self) Stroke Other malissa (self) Cancer Neg Hx no colon, breas t cancer cmt 03/03/24 Relation Name Status Comments Father Alive Mother Mother's Sister 1 Dianna Mother's Sister 2 Jovita Other malissa (self) Social History Tobacco Use Types Packs/Day Years [...] on file Sexual Orientation Not on file Obstetrics History Para Term AB IAB SAB Ectopic Multiple Livin g Live Births 0 0 0 0 0 0 0 0 0 0 0 Last Filed Vital Signs Vital Sign Reading Time Taken Comments Blood Pressure 116/76 05/04/2024 3:00 PM CDT Pulse 112 03/20/2024 2:14 PM CDT Temperature 36.2 C (97.1 F) 03/20/2024 2:13 PM CDT Respiratory Rate 19 03/20/2024 2:14 PM CDT Oxygen Saturation 99% 03/20/2024 2:14 PM CDT Inhaled Oxygen Concentration - - Weight 116.6 kg (257 lb) 05/18/2024 10:07 AM MOGUL OPERATOR Height 165.1 cm (5' 5 ) 05/18/2024 10:07 AM MOGUL OPERATOR Body Mass Index 42.77 05/18/2024 10:07 AM MOGUL OPERATOR Plan of Treatment Health Maintenance Due Date Last Done Comments Colon Cancer Screening-Colonoscopy 1974 Hepatitis C Screening 1974 DTaP/Tdap/Td Vaccine (1 - Tdap) 1985 Hepatitis B Screening 01/04/1992 Pneumococcal vaccine <65 (1 of 2 - PCV) 1993 Zoster Vaccine (1 of 2) 01/04/2024 Influenza Vaccine (#1) 2024 Cervical Cancer Screening 03/03/2025 03/03/2024, Depression Screening 03/03/2025 03/03/2024, 11/24/2019, 11/08/2019 Regular Well Visit/Exam 18-64 03/03/2025 03/03/2024 Breast Cancer Screening-Mammogram 04/20/2025 024 Medical Devices Implanted Type Area Seasoner Hand Device Identifier Shelf Expiration Date Model / Serial / Lot [employer] Inc/C R Bard [id number] Ventralex St Sepra Sorbaflex 1.7in [place] Open Bioresorbable - [id number] Implanted:Qty: 1 on 03/31/2021 by Bill Dyer MD at [facility] N/A: Abdomen [employer] Inc/C R Bard 07/08/2022 [id number] / / [id number] [employer] Weck Hem-O-Abhishek Ligate Nonabsorbable Cartridge Medium Large Latex Free [id number] - [id number] Implanted:Qty: 2 on 08/17/2022 by Bill Dyer MD at [facility] [email or web address] 06/10/2027 [id number] / / [id number] Description:6 clips used Procedures Procedure Name Priority [...] BI-RADS Category 2: Benign. Electronically signed by: Neto Levy 04/20/2024 12:31 PM CDT EXAMINATION: BILATERAL DIGITAL [...] the mammographic appearance. us Willa Conti MD IM MAMMO PROCEDURE S Final Result * High Risk HPV DNA Detection with Genotyping (Molecular component) (03/03/2024 11:48 AM CDT) HPV HR 16 Not Detected Not Detected [facility] Comment:Testing performed by : [facility], [address] [place] [address]., [address] HPV HR 18 Not Detected Not Detected [facility] Comment:Testing performed by : [facility], [address] [place]., [address] HPV HR Non 16/18 Not Detected Not Detected [facility] Comment: Interpretive Data Nucleic acid amplification for [...] this test have been verified by the [facility] Molecular Infectious Disease laboratory. Correlate with separately reported cytology results, as applicable. Interpretive data last revised 23 Testing performed by: [facility], [address] [place] [address] Endocervical 03/03/2024 11:4 8 AM CDT 03/06/2024 2:35 PM CDT Koko HOANG CH - 03/06/2024 10:55 PM CDT Clinical history and diagnosis->screening Testing type->Screening Last menstrual period (date if known)->unknown Willa Conti MD LAB BODY FLUIDS AND STOOLS ORDERABLES Final Result [facility] [id number] [address] Department [place] [address] [facility] from Last 3 Months or Most Recently Relevant to Health Maintenance Insurance [facility]NA [facility] Advance Directives For more information, please contact: [phone] * Full Code (Latest Code Status on File) Date Activated Date Inactivated Comments 11/24/2019 5:09 PM 11/26/2019 6:12 PM * Full Code Date Activated Date Inactivated Comments 11/09/2019 3:25 AM 11/16/2019 5:09 PM Care Teams Hand Salter Relationship Specialty Start Date End Date Gemini Lange NP [address] [place] [address] PCP - General Nurse Practitioner 01/17/23 Elva Cordova DNP Nurse Practitioner Neurology 11/26/19
--- OUTSIDE RECORDS SUMMARY | 2024-10-21 08:30 | XMS_ITS | Encounter Summary ---
Author Organization [facility] Address [address] [place] [address] Care Team Providers Care Boat Pilot Name Role Phone JordanRohan gamezo DNP Unavailable [phone] Dolly Long LEARNING TECHNOLOGIST Primary Care Provider [phone] Clinic, Primary Care Medicine Primary Care Pr ovider Unavailable Dolly Long NP Primary Care Provider [phone] Gemini Lange LEARNING TECHNOLOGIST Primary Care Provider [phone] Encounter Details Date Type Department Care Team (Late st Contact Info) Description 04/19/2020 Telephone [facility] [address] [place], [place] [id number] Lisa Brewer, RT Social History Tobacco Use Types Packs/Day Years Used Date Smoking Tobacco: Every Day Cigarettes Smokeless Tobacco: Never Alcohol Use Standard Drinks/Week Comments Yes 0 (1 standard drink = 0.6 oz pure alcohol) occasionally, had 3 beers today PHQ-2 Answer Date Recorded PHQ-2 Total Score (If total score is 3 or more points, staff should administer the PHQ-9) 0 11/25/2019 Comments No Sex and Gender Information Value Date Recorded Sex Assigned at Not on file Legal Sex Female 3:34 PM CDT Gender Identity Not on file Sexual Orientation Not on file documented as of this encounter Plan of Treatment Not on file documented as of this encounter Visit Diagnoses Not on filedocumented in this encounter Care Teams Boat Pilot Relationship Specialty Start Date End Date Dolly Long NP [address] [address] PCP - General Family Medicine 03/20/20 03/26/21 Clinic, Primary Care Medicine, [address] [address] PCP - General 03/27/21 03/27/21 Dolly Long NP [address] [address] PCP - General 03/28/21 01/16/23 Gemini Lange, JOHNA [address] [place] [address] PCP - General Nurse Practitioner 01/17/23 Elva Cordova DNP Nurse Practitioner Neurology 11/26/19 documented as of this encounter
--- OUTSIDE RECORDS SUMMARY | 2024-10-21 08:30 | XMS_ITS | Clinical Summary ---
Author Organization [facility] Address [address] [place] [address] Care Team Providers Care Terrazzo Worker Helper Name Role Phone Gemini Lange JOLENE Primary Care Provider [phone] Allergies Active Allergy Reactions Criticality Noted Date Comments Egg White (Egg Protein) Shortness of Breath,GI Upset High 06/30/2019 Severe Abdominal Pain Nuts Shortness of Breath,GI Upset High 06/30/2019 Severe Abdominal Pain Medications omeprazole 40 MG capsule Take 40 mg by mouth 2 (two) times a day. Active lisinopril-hydroCHL OROthiazide 10-12.5 MG tablet Take 1 tablet by mouth daily. Active metoprolol succinate ER 25 MG 24 hr tablet Take 25 mg by mouth daily. 1 Active HYDROcodone-acetami nophen 5-325 MG tabletIndications:C hronic Pain Take 1 tablet by mouth every 6 (six) hours as needed. Indications: Chronic Pain 30 tablet 1 Active ondansetron 4 MG disintegrating tablet Take 2 tablets (8 mg total) by mouth every 8 (eight) hours as needed for Nausea. 20 tablet 2 Active HYDROcodone-acetami nophen 5-325 MG tabletIndications:A cute Pain < 3 Day Supply Take 1 tablet by mouth every 6 (six) hours as needed. Indications: Acute Pain < 3 Day Supply 8 tablet 2 Active Active Problems Problem Noted Date Diagnosed Date Closed fracture of proximal end of left tibia with routine healing, unspecified fracture morphology, subsequent encounter 02/19/2021 Family History Medical History Relation Comments Cancer Brother Alzheimers Father Diabetes Father Hypertension Father Arthritis Mother Cancer Mother Relation Status Comments Brother Father Alive Mother Alive Social History Tobacco Use Types Packs/Day Years Used Date Smoking Tobacco: Every Day Cigarettes Smokeless Tobacco: Never Alcohol Use Standard Drinks/Week Comments Not Currently 0 (1 standard drink = 0.6 oz pur e alcohol) Comments No Sex and Gender Information Value Date Recorded Sex Assigned at Not on file Legal Sex Female 7:41 AM CDT Gender Identity Not on file Sexual Orientation Not on file Last Filed Vital Signs Vital Sign Reading Time Taken Comments Blood Pressure 117/70 03/22/2024 2:03 PM CDT Pulse 72 03/22/2024 2:03 PM CDT Temperature 36.8 C (98.2 F) 10/30/2021 1:55 PM CDT Respiratory Rate 20 10/30/2021 4:00 PM CDT Oxygen Saturation 93% 03/22/2024 2:03 PM CDT Inhaled Oxygen Concentration - - Weight 108.9 kg (240 lb) 10/30/2021 1:55 PM CDT Height 165.1 cm (5' 5 ) 10/30/2021 1:55 PM CDT Body Mass Index 39.94 10/30/2021 1:55 PM CDT Plan of Treatment Health Maintenance Due Date Last Done Comments Colorectal Cancer Screening Colonoscopy (10 Years) 1974 Annual Physical 1977 Pneumococcal Vaccine: Pediat rics (0 to 5 Years) and At-Risk Patients (6 to 64 Years) (1 of 2 - PCV) 01/04/1980 Hepatitis C 01/04/1992 DTaP, Tdap and Td Vaccines ( 1 - Tdap) 1993 Hepatitis B Vaccines (1 of 3 - 19+ 3-dose series) 1993 Cervical Cancer Screening Pa p with HPV Testing (Age 30 to 64) Every 5 Years 01/04/2004 Mammogram Screening 2014 Zoster Vaccines (1 of 2) 01/04/2024 COVID-19 Vaccine ( - 2023-2 5 season) 2024 Cervical Cancer Screening Pa p Smear (Age 30 to 64) Every 3 Years 03/03/2027 03/03/2024 Cervical Cancer Screening with HPV 03/03/2027 Meningococcal B Vaccine Aged Out No l onger eligible based on patient's age to complete this topic Meningococcal Vaccine Aged Out No casey maddie eligible based on patient's age to complete this topic RSV Immunizations Under 20 Months Aged Out No longer eligible based on patient's age to complete this topic Insurance T Care Teams Terrazzo Worker Helper Relationship Specialty Start Date End Date Gemini Lange FNP [address] [place] [phone] PCP - General Nurse Practitioner Family 03/22/24
== END 2024-10-21 08:28 | disposition home or self-care (01) ==
LOC: CHSIMG 08:28
PROVIDERS: PCP Nurse Practitioner Family; Visit Provider Nurse Practitioner Family
DX: M25.512 Pain in left shoulder (principal); R20.2 Paresthesia of skin; M54.2 Cervicalgia
CPT/HCPCS: 72141; 73221

== ENCOUNTER 2025-02-13 07:47 | Outpatient (CLI) | payer OTHER, SELFPAY ==
--- OUTSIDE RECORDS SUMMARY | 2025-02-13 07:54 | XMS_ITS | Encounter Summary ---
Author Organization [facility] Address [address] [place] [address] Care Team Providers Care Nonprofit Fundraiser Name Role Phone JordanRohan gamezo DNP Unavailable Dolly Long CATTLE TRADER Primary Care Provider [phone] Clinic, Primary Care Medicine Primary Care Pr ovider Unavailable Dolly Long NP Primary Care Provider [phone] Gemini Lange CATTLE TRADER Primary Care Provider [phone] Encounter Details Date Type Department Care Team (Late st Contact Info) Description 04/19/2020 Telephone [facility] [id number] [place], [place] [id number] Lisa Brewer, RT Social History Tobacco Use [...] on filedocumented in this encounter Care Teams Nonprofit Fundraiser Relationship Specialty Start Date End Date Dolly Long NP [address] [address] PCP - General Family Medicine 03/20/20 03/26/21 Clinic, Primary Care Medicine, [address] [address] PCP - General 03/27/21 03/27/21 Dolly Long NP [address] [address] PCP - General 03/28/21 01/16/23 Gemini Lange, JOHAN [address] [place] [address] PCP - General Nurse Practitioner 01/17/23 Elva Cordova DNP Nurse Practitioner Neurology 11/26/19 documented as of this encounter
--- OUTSIDE RECORDS SUMMARY | 2025-02-13 07:54 | XMS_ITS | Encounter Summary ---
Author Organization [facility] Address [address] [place] [address] Care Team Providers Care Road Train Driver Name Role Phone Gemini Lange Primary Care Provider [phone] Encounter Details Date Type Department Care Team (Late st Contact Info) Description 11/24/2024 [email or web address] Message [address] [address] Mari High FNP[address] [place] [id number] Visit Follow Up Social History Tobacco Use Types Packs/Day Years Used Date Smoking Tobacco: Every Day Cigarettes Smokeless Tobacco: Never Comments:Current smoker for 32 years Alcohol Use Standard Drinks/Week Comments Not Currently 0 (1 standard drink = 0.6 oz pur e alcohol) Sobber 5 years Comments No Sex and Gender Information Value Date Recorded Sex Assigned at Not on file Legal Sex Female 7:41 AM CDT Gender Identity Not on file Sexual Orientation Not on file documented as of this encounter Plan of Treatment Not on file documented as of this encounter Visit Diagnoses Not on filedocumented in this encounter Care Teams Road Train Driver Relationship Specialty Start Date End Date Gemini Lange FNP [address] [place] [phone] PCP - General Nurse Practitioner Family 03/22/24 documented as of this encounter
--- OUTSIDE RECORDS SUMMARY | 2025-02-13 07:54 | XMS_ITS | Clinical Summary ---
Author Organization [facility] Address [address] [place] [address] Care Team Providers Care Insurance Agency Manager Name Role Phone Art Elva DNP Unavailable [phone] Gemini Lange CREATIVE WRITING PROFESSOR Primary Care Provider [phone] Allergies Active Allergy Reactions Criticality Noted Date [...] (40 mg total) by mouth daily Active -uytt -Lmfolate-algal 27 mg iron-1.13 mg-581.92 mg capsule [...] (08/12/2022): Added automatically from request for surgery [id number] Incisional hernia, without o bstruction or gangrene [...] the ICU under the care of the clinic director. Currently patient states her symptoms are improving. Neurology has been consulted Acute medial meniscus tear of right knee 06/29/2019 03/29/2020 Overview (06/29/2019): Added automatically from request for surgery [id number] Acute bronchitis 12/17/2018 03/29/2020 Acute bronchospasm 12/17/2018 [...] esophagus GERD (gastroesophageal reflux disease) Hypothyroidism Stroke (HCC) 2017 Right Mouth slig htly droops Arthritis COPD (chronic obstructive pu lmonary disease) Awareness under anesthesia Seizures (HCC) patient stated s he had a seizure when she had the stroke Anxiety Heart attack (HCC) Family History Medical History Relation Name Comments [...] 116.6 kg (257 lb) 05/18/2024 10:07 AM PANELBOARD ASSEMBLER Height 165.1 cm (5' 5) 05/18/2024 10:07 AM PANELBOARD ASSEMBLER Body Mass Index 42.77 05/18/2024 10:07 AM PANELBOARD ASSEMBLER Plan of Treatment Health Maintenance Due Date Last Done Comments Colon Cancer Screening-Colonoscopy 1974 Hepatitis C Screening 1974 DTaP/Tdap/Td Vaccine (1 - Tdap) 1985 Hepatitis B Screening 01/04/1992 Pneumococcal vaccine <65 (1 of 2 - PCV) 1993 Zoster Vaccine (1 of 2) 01/04/2024 Cervical Cancer Screening 03/03/2025 03/03/2024, Depression Screening 03/03/2025 03/03/2024, 11/24/2019, 11/08/2019 Regular Well Visit/Exam 18-64 03/03/2025 03/03/2024 Influenza Vaccine (#1) 2025 Breast Cancer Screening-Mammogram 04/20/2025 024 Medical Devices Implanted Type Area Explosive Ordnance Disposal Technician Device Identifier Shelf Expiration Date Model / Serial / Lot Davol Inc/C R Bard [id number] Ventralex St Sepra Sorbaflex 1.7in Spring Open Bioresorbable - [id number] Implanted:Qty: 1 on 03/31/2021 by Bill Dyer MD at [facility] N/A: Abdomen Davol Inc/C R Bard 07/08/2022 [id number] / / [id number] [employer] Hem-O-Abhishek Ligate Nonabsorbable Cartridge Medium Large Latex Free [id number] - [id number] Implanted:Qty: 2 on 08/17/2022 by Bill Dyer MD at [facility] Beautylish 06/10/2027 [id number] / / [id number] Description:6 clips used Procedures Procedure Name Priority [...] HPV HR 16 Not Detected Not Detected [facility] Comment:Testing performed by : [facility], [address] [place] [address]., [address] HPV HR 18 Not Detected Not Detected [facility] Comment:Testing performed by : [facility], [address] [place]., [address] HPV HR Non 16/18 Not Detected Not Detected [facility] Comment: Interpretive Data Nucleic acid amplification for [...] this test have been verified by the [facility] Molecular Infectious Disease laboratory. Correlate with separately reported cytology results, as applicable. Interpretive data last revised 23 Testing performed by: [facility], [address] [place] [address]., [address] Endocervical 03/03/2024 11:4 8 AM CDT 03/06/2024 2:35 PM CDT Koko VIKTOR KILLIAN - 03/06/2024 10:55 PM CDT Clinical history and diagnosis->screening Testing type->Screening Last menstrual period (date if known)->unknown Willa Conti MD LAB BODY FLUIDS AND STOOLS ORDERABLES Final Result VIKTOR [id number] Kaylene Scherer Department [place] [address] [facility] from Last 3 Months or Most Recently Relevant to Health Maintenance Insurance [facility]NA [facility] A[facility]NA [facility] AETNA [facility] Advance Directives For more information, please contact: [phone] * Full Code (Latest Code Status on File) Date Activated Date Inactivated Comments 11/24/2019 5:09 PM 11/26/2019 6:12 PM * Full Code Date Activated Date Inactivated Comments 11/09/2019 3:25 AM 11/16/2019 5:09 PM Care Teams Insurance Agency Manager Relationship Specialty Start Date End Date Gemini Lange NP [address] [place] [address] PCP - General Nurse Practitioner 01/17/23 Elva Cordova DNP Nurse Practitioner Neurology 11/26/19
--- OUTSIDE RECORDS SUMMARY | 2025-02-13 07:54 | XMS_ITS | Referral Summary ---
Author Organization [facility] Address [address] [place] [address] Care Team Providers Care Caul Fat Puller Name Role Phone Art Elva DNP Unavailable [phone] Gemini Lange CEMENT PRODUCTION PLANT OPERATOR Primary Care Provider [phone] Allergies Active Allergy Reactions Criticality Noted Date [...] (40 mg total) by mouth daily Active -jisj -Lmfolate-algal 27 mg iron-1.13 mg-581.92 mg capsule [...] (08/12/2022): Added automatically from request for surgery [id number] Incisional hernia, without o bstruction or gangrene [...] the ICU under the care of the paper tube grader. Currently patient states her symptoms are improving. Neurology has been consulted Acute medial meniscus tear of right knee 06/29/2019 03/29/2020 Overview (06/29/2019): Added automatically from request for surgery [id number] Acute bronchitis 12/17/2018 03/29/2020 Acute bronchospasm 12/17/2018 [...] 116.6 kg (257 lb) 05/18/2024 10:07 AM TRACKLESS TROLLEY DRIVER Height 165.1 cm (5' 5) 05/18/2024 10:07 AM TRACKLESS TROLLEY DRIVER Body Mass Index 42.77 05/18/2024 10:07 AM TRACKLESS TROLLEY DRIVER Plan of Treatment Not on file Medical Devices Implanted Type Area Regional Operations Director Device Identifier Shelf Expiration Date Model / Serial / Lot Davol Inc/C R Bard [id number] Ventralex St Sepra Sorbaflex 1.7in [place] Open Bioresorbable - [id number] Implanted:Qty: 1 on 03/31/2021 by Bill Dyer MD at [facility] N/A: Abdomen [employer]ol Inc/C R Bard 07/08/2022 [id number] / / [id number] [employer] Weck Hem-O-Abhishek Ligate Nonabsorbable Cartridge Medium Large Latex Free [id number] - [id number] Implanted:Qty: 2 on 08/17/2022 by Bill Dyer MD at [facility] [employer] 06/10/2027 [id number] / / [id number] Description:6 clips used Procedures Procedure Name Priority [...] HPV HR 16 Not Detected Not Detected [facility] Comment:Testing performed by : [facility], [address] [place]., [address] HPV HR 18 Not Detected Not Detected [facility] Comment:Testing performed by : [facility], [address] [place]., [address] HPV HR Non 16/18 Not Detected Not [...] this test have been verified by the [facility] Molecular Infectious Disease laboratory. Correlate with separately reported cytology results, as applicable. Interpretive data last revised 23 Testing performed by: [facility], [address] [place]., [address] Endocervical 03/03/2024 11:4 8 AM CDT 03/06/2024 2:35 PM CDT Narrative VIKTOR - 03/06/2024 10:55 PM CDT Clinical history and diagnosis->screening Testing type->Screening Last menstrual period (date if known)->unknown Willa Conti MD LAB BODY FLUIDS AND STOOLS ORDERABLES Final Result VIKTOR [id number] Kaylene Department [place] [address] [facility] from Last 3 Months or Most Recently Relevant to Health Maintenance Insurance [facility]ETNA [facility] Advance Directives For more information, please contact: [phone] * Full Code (Latest Code Status on File) Date Activated Date Inactivated Comments 11/24/2019 5:09 PM 11/26/2019 6:12 PM * Full Code Date Activated Date Inactivated Comments 11/09/2019 3:25 AM 11/16/2019 5:09 PM Care Teams Caul Fat Puller Relationship Specialty Start Date End Date Gemini Lange, JOHAN [address] [place] [address] PCP - General Nurse Practitioner 01/17/23 Elva Cordova DNP Nurse Practitioner Neurology 11/26/19
--- OUTSIDE RECORDS SUMMARY | 2025-02-13 07:54 | XMS_ITS | Clinical Summary ---
Author Organization [facility] Address [address] [place] [address] Care Team Providers Care Security Strategist Name Role Phone Lange, Gemini FERNÁNDEZ Primary Care Provider [phone] Allergies Active Allergy Reactions Criticality Noted Date Comments Eggs GI Upset,Headache,Hives,Itchin g,Nausea and Vomiting,Shortness of Breath,Swelling,Throat swelling,Vomiting High 11/24/2024 Peanut-Containing Drug Products Shortness of Breath High 06/16/2018 Medications omeprazole 40 MG capsule Take 40 mg by mouth 2 (two) times a day. Active acetaminophen-cod eine (TYLENOL #4) 300-60 MG tablet Take 1 tablet by mouth every 4 (four) hours as needed for Pain. 5 Active ASPIRIN EC 81 MG tablet Take 1 tablet (81 mg total) by mouth daily. Active atorvastatin (LIPITOR) 40 MG tablet Take 1 tablet (40 mg total) by mouth daily. 5 Active lisinopril (PRINIVIL) 10 MG tablet Take 1 tablet (10 mg total) by mouth daily. 5 Active metoprolol tartrate (LOPRESSOR) 50 MG tablet Take 1 tablet (50 mg total) by mouth 2 (two) times daily. 4 Active nitroglycerin (NITRODUR) 0.2 MG/HR Place 1 patch onto the skin daily. 4 Active pregabalin (LYRICA) 150 MG capsule Take 1 capsule (150 mg total) by mouth 2 (two) times daily. 5 Active meloxicam (MOBIC) 15 MG tabletIndications :Adhesive capsulitis of left shoulder,Lateral epicondylitis of left elbow Take 1 tablet (15 mg total) by mouth daily. 30 tablet 5 Active JORGE Ledezma, (MEDROL DOSEPAK) 4 MG tabletIndications :Adhesive capsulitis of left shoulder 4 mg Oral Tablet Therapy Pack. Follow package directions 1 each 5 Active Active Problems Problem Noted Date Diagnosed Date Lateral epicondylitis of left elbow 11/24/2024 Adhesive capsulitis of left shoulder 11/24/2024 Closed fracture of proximal end of left tibia with routine healing, unspecified fracture morphology, subsequent encounter 02/19/2021 Encounters Date Type Department Care Team Description 02/06/2025 11:05 AM CDT - 02/06/2025 11:59 PM CDT Hospital Encounter [facility] [address] [place] [address] David Heard, PT Dmitri Mtz MD Bodner, Katie A, STOCK CONTROL SUPERVISOR Shoulder Pain Discharge Disposition: Home or Self Care (Routine Discharge) 02/06/2025 Travel 01/31/2025 7:35 AM CDT - 01/31/2025 11:59 PM CDT Hospital Encounter [facility] [address] [place] [address] David Heard, PT Dmitri Mtz MD Shoulder Pain Discharge Disposition: Home or Self Care (Routine Discharge) 01/31/2025 Travel 01/17/2025 11:26 AM CDT - 01/17/2025 11:59 PM CDT Hospital Encounter [facility] [address] [place] [address] David Heard, PT Kami Mcclure, STOCK CONTROL SUPERVISOR Shoulder Pain Discharge Disposition: Home or Self Care (Routine Discharge) 01/17/2025 Travel 01/15/2025 7:54 AM CDT - 01/15/2025 11:59 PM CDT Hospital Encounter [facility] [address] [place] [address] David Heard, PT Shoulder Injury; Shoulder Pain Discharge Disposition: Home or Self Care (Routine Discharge) 01/15/2025 Travel 12/27/2024 Scan [facility] [address] [facility] [place] [place] [address] Scanned, Documents 12/25/[address] [phone] Nik High FNP-BC Appointment Request 12/25/[address] [address] Nik High FNP-BC Appointment Request 12/20/[address] [address] Nik High FNP-BC Question 12/12/2024 10:05 AM CDT - 12/12/2024 11:59 PM CDT Hospital Encounter [facility] [address] [place] [address] Nik High FNP-BC Hankins, Nichole K, OT Discharge Disposition: Home or Self Care (Routine Discharge) 12/12/[address] [address] Taryn Wheeler PA Follow Up Call 12/12/2024 Travel 11/30/2024 11:04 AM CDT - 11/30/2024 11:59 PM CDT Hospital Encounter [facility] [address] [place] [address] Nik High, Nabila Deleon, CHAND Discharge Disposition: Home or Self Care (Routine Discharge) 11/30/2024 Travel 11/28/2024 10:17 AM CDT - 11/28/2024 11:59 PM CDT Hospital Encounter [facility] [address] [place] [address] Nik High FNP-BC Hankins, Nichole K, OT Discharge Disposition: Home or Self Care (Routine Discharge) 11/28/2024 Travel 11/24/2024 9:30 AM CDT Office Visit [address] [place] [address] Nik High FNP-BC Shoulder Pain (LEFT); New Patient 11/24/2024 9:17 AM CDT - 11/24/2024 11:59 PM CDT Hospital Encounter [facility] [address] [place] [address] Nik High FNP-BC Discharge Disposition: Home or Self Care (Routine Discharge) 11/24/2024 MyChart Message Enc [address] [address] Nik High FNP-BC Visit Follow Up 11/24/2024 Travel 11/21/2024 Orders Only [address] [address] Nik High FNP-BC 11/20/[address] [address] Nik High FNP-BC Appointment Request (LEFT shoulder) from Last 3 Months Family History Medical History Relation Comments Cancer Brother Passed 11 years ago Alzheimers Father Diabetes Father Passed from [facility] er & dementia Hypertension Father Arthritis Mother Passed from [facility] er Cancer Mother Relation Status Comments Brother Father [...] CDT Inhaled Oxygen Concentration - - Weight 112 kg (247 lb) 11/24/2024 9:21 AM CDT Height 165.1 cm (5' 5) 11/24/2024 9:21 AM CDT Body Mass Index 41.1 11/24/2024 9:21 AM CDT Plan of Treatment Health Maintenance Due Date Last Done Comments Colorectal Cancer Screening Colonoscopy (10 Years) 1974 Annual Physical 1977 Hepatitis C 01/04/1992 DTaP, Tdap and Td Vaccines ( 1 - Tdap) 1993 Hepatitis B Vaccines (1 of 3 - 19+ 3-dose series) 1993 Pneumococcal Vaccine: 50+ Ye ars (1 of 2 - PCV) 1993 Cervical Cancer Screening Pa p with HPV Testing (Age 30 to 64) Every 5 Years 01/04/2004 Zoster Vaccines (1 of 2) 01/04/2024 COVID-19 Vaccine (1 - 2023-2 5 season) 2024 Mammogram Screening 04/20/2026 04/20/2024 Cervical Cancer Screening Pa p Smear (Age [...] on patient's age to complete this topic Procedures Procedure Name Priority Date/Time Associated Diagnosis Comments XR ELBOW LT M3V Routine 11/24/2024 10:18 AM CDT Elbow pain, left XR SHOULDER LT MIN 2V Routine 11/24/2024 9:53 AM CDT Left shoulder pain from Last 3 Months Results * XR ELBOW LT M3V (11/24/2024 10:18 AM CDT) Anatomical Region Laterality Modality Elbow Radiographic Marie ging 11/24/2024 10:5 4 AM CDT Impressions 11/24/2024 10:55 AM CDT IMPRESSION: No acute findings. Ordered By: NIK HIGH Interpreted By: Pratik Bowser MD, 11/24/2024 10:54 AM Narrative 11/24/2024 10:55 AM CDT [address] [place] [address] Examination: Left elbow. Exam time: 0906 hours. Clinical history: Pain. Comparison: None. Technique: Three views. Findings: No fracture, dislocation or other acute bony abnormality is identified. No other significant bone or joint abnormality is noted. The soft tissues are unremarkable. Procedure Note Pratik Bowser MD - 11/24/[address] [place] [address] Examination: Left elbow. Exam time: 0906 hours. Clinical history: Pain. Comparison: None. Technique: Three views. Findings: No fracture, dislocation or other acute bony abnormality isidentified. No other significant bone or joint abnormality is noted. Thesoft tissues are unremarkable. IMPRESSION: No acute findings. Ordered By: NIK HIGH Interpreted By: Pratik Bowser MD, 11/24/2024 10:54 AM us Nik High DAM ATTENDANT-BC GENERAL IMAGING Final Resu lt * XR SHOULDER LT MIN 2V (11/24/2024 9:53 AM CDT) Anatomical Region Laterality Modality Shoulder Radiographic Marie ging 11/24/2024 9:55 AM CDT Impressions 11/24/2024 9:56 AM CDT IMPRESSION: No acute findings. Ordered By: NIK HIGH Interpreted By: Pratik Bowser MD, 11/24/2024 9:55 AM Narrative 11/24/2024 9:56 AM CDT [address] [place] [address] Examination: Left shoulder. Exam time: 0833 hours. Clinical history: Pain. Comparison: 12/25/2023 ([facility]). Technique: Three views. Findings: Old fractures of the left fifth and sixth posterolateral ribs are again evident. There is no acute fracture or dislocation. No other significant bone or joint abnormality is noted. The soft tissues are unremarkable. Procedure Note Pratik Bowser MD - 11/24/2024 [facility] [address] [facility] [place] [address] Examination: Left shoulder. Exam time: 0833 hours. Clinical history: Pain. Comparison: 12/25/2023 ([facility]). Technique: Three views. Findings: Old fractures of the left fifth and sixth posterolateral ribsare again evident. There is no acute fracture or dislocation. No othersignificant bone or joint abnormality is noted. The soft tissues areunremarkable. IMPRESSION: No acute findings. Ordered By: NIK HIGH Interpreted By: Pratik Bowser MD, 11/24/2024 9:55 AM Nik High DAM ATTENDANT-BC GENERAL IMAGING Final Resu lt from Last [address] [place] [address] [id number] Care Teams Security Strategist Relationship Specialty Start Date End Date Gemini Lange FNP [address] [place] [address] PCP - General Nurse Practitioner Family 03/22/24
[2025-02-13 08:40] LABS: Alanine Aminotransferase 25 U/L (6-35); Albumin Level 4.3 g/dL (3.5-5.1); Alkaline Phosphatase 75 U/L (38-126); Anion Gap 5 mmol/L (4-12); Aspartate Amino Transferase 33 U/L (14-36); Bilirubin,Total 0.6 mg/dL (0.2-1.3); Blood Urea Nitrogen 6 mg/dL (7-17); Calcium 10.1 mg/dL (8.4-10.2); Carbon Dioxide 28 mmol/L (22-30); Chloride 107 mmol/L (98-107); Cholesterol 149 mg/dL (0-200); Estimated Glomerular Filt Rate > 60; Glucose 115 mg/dL (65-110); HDL Direct 42 mg/dL; Osmolality Calculated 288 mOsm/kg (285-295); Potassium 4.5 mmol/L (3.4-5.0); Sodium 140 mmol/L (137-145); Total Protein 6.7 g/dL (6.3-8.2); Triglycerides 108 mg/dL (<150)
== END 2025-02-13 07:48 | disposition home or self-care (01) ==
PROVIDERS: PCP Nurse Practitioner Family
DX: I10 Essential (primary) hypertension (principal); E78.2 Mixed hyperlipidemia; G47.30 Sleep apnea, unspecified
CPT/HCPCS: 36415; 80053; 80061